=== PATIENT | male | born 1940 | race Caucasian/White ===

== ENCOUNTER 2017-07-11 14:40 | Inpatient (IN) | payer MEDICARE, MEDICAID ==
[~2017-07-11] VITALS: Ht 170.2 cm; Wt 65.8 kg
[2017-07-11] MEDS ORDERED: SODIUM CHLORIDE 0.9% 1,000 ML IV ONE ×2 (15:04→15:09)
[2017-07-11 16:01] LABS: BASOPHILS % 0.2 % (0.0-2.0); EOSINOPHILS % 0.7 % (0.0-5.0); HEMATOCRIT. 33.1 % (42.0-52.0); HEMOGLOBIN. 11.4 g/dL (14.0-18.0); LYMPHOCYTES % 10.6 % (20.0-50.0); MEAN CORPUSCULAR VOLUME 86.8 fL (80.0-94.0); MEAN PLATELET VOLUME 6.4 fl (7.4-10.4); MONOCYTES % 10.7 % (2.0-8.0); NEUTROPHILS % 77.8 % (40.0-76.0); PLATELET 551 x1000/uL (130-400); RED BLOOD CELL COUNT 3.82 mill/uL (4.7-6.1); RED CELL DISTRIBUTION WIDTH 13.6 % (11.6-14.6)
[2017-07-11 16:03] LABS: INR 1.1; PROTHROMBIN TIME 11.3 sec (9.4-11.6)
[2017-07-11 16:11] LABS: CARBON DIOXIDE 23 mEq/L (21-32); CHLORIDE 91 mEq/L (98-107); TROPONIN I < 0.02 ng/mL (0.00-0.04)
[2017-07-11] MEDS ORDERED: SODIUM CHLORIDE 0.9% 1000ML BAG (SEPSIS BOLUS) IV ONE (16:30)
[2017-07-11] MEDS ORDERED: PIPERACILLIN/TAZ 3.375G PREMIX 50 ML IV ONE (16:30)
[2017-07-11 17:06] LABS: CLARITY URINE CLEAR (CLEAR); COLOR URINE YELLOW (YELLOW); KETONES URINE NEGATIVE (NEGATIVE); LEUKOCYTE ESTERASE URINE NEGATIVE (NEGATIVE); NITRITE URINE NEGATIVE (NEGATIVE); OCCULT BLOOD URINE NEGATIVE (NEGATIVE); PH URINE 7.5 (4.5-8.0); PROTEIN URINE NEGATIVE (NEGATIVE); SPECIFIC GRAVITY URINE 1.013 (1.005-1.030); UROBILINOGEN URINE 0.2 E.U./dL (0.2-1.0)
[2017-07-11] MEDS ORDERED: PHENYTOIN SODIUM 500 MG in SODIUM CHLORIDE 0.9% 100 ML IV STA (17:09)
[2017-07-11] MEDS ORDERED: ACETAMINOPHEN 650MG SUPP PR PRN (19:15)
[2017-07-11] MEDS ORDERED: LORAZEPAM 2MG/ML CPJ IV PRN ×2 (19:15)
[2017-07-11] MEDS ORDERED: ONDANSETRON HCL 4MG/2ML VIAL IV PRN (19:15)
[2017-07-11] MEDS ORDERED: DEXT 5%/0.45% NACL 1000ML 1,000 ML IV SCH (19:30)
[2017-07-11 20:45] VITALS: BP 122/54
[2017-07-11 21:02] VITALS: BP 126/56
[2017-07-11 22:00] VITALS: BP 151/80
[2017-07-11] MEDS ORDERED: VANCOMYCIN 1250MG in DEXTROSE 5% WATER 250ML IV SCH (22:30)
[2017-07-11 23:00] VITALS: BP 106/67
[2017-07-11] MEDS: SODIUM CHLORIDE 0.9% 1,000 ML IV SCH (23:22)
[2017-07-12] VITALS (16 sets, daily range): BP systolic 94–147; BP diastolic 53–80
[2017-07-12] MEDS: PIPERACILLIN/TAZ 3.375G PREMIX 50 ML IV SCH ×3 (01:07→13:45)
[2017-07-12 06:56] LABS: BASOPHILS % 0.3 % (0.0-2.0); EOSINOPHILS % 1.3 % (0.0-5.0); HEMATOCRIT. 32.5 % (42.0-52.0); HEMOGLOBIN. 11.3 g/dL (14.0-18.0); LYMPHOCYTES % 19.9 % (20.0-50.0); MEAN CORPUSCULAR VOLUME 86.4 fL (80.0-94.0); MEAN PLATELET VOLUME 6.6 fl (7.4-10.4); MONOCYTES % 10.5 % (2.0-8.0); PLATELET 550 x1000/uL (130-400); RED BLOOD CELL COUNT 3.76 mill/uL (4.7-6.1); RED CELL DISTRIBUTION WIDTH 14.1 % (11.6-14.6)
[2017-07-12 07:37] LABS: CARBON DIOXIDE 26 mEq/L (21-32); CHLORIDE 92 mEq/L (98-107)
[2017-07-12] MEDS: SODIUM CHLORIDE 0.9% 1,000 ML IV SCH ×2 (08:22→16:45)
[2017-07-12] MEDS ORDERED: VANCOMYCIN 1 G PREMIX 200 ML IV SCH (10:30)
[2017-07-12] MEDS ORDERED: MULT-1116 PO (13:39)
[2017-07-12] MEDS ORDERED: ACET-2178 PO (13:39)
[2017-07-12] MEDS ORDERED: BUSP30TA2 PO (13:39)
[2017-07-12] MEDS ORDERED: ASPI-986 PO (13:39)
[2017-07-12] MEDS ORDERED: ATOR20TA65 PO (13:39)
[2017-07-12] MEDS ORDERED: DEME150T8 PO (13:39)
[2017-07-12] MEDS ORDERED: MELA3TAB PO (13:39)
[2017-07-12] MEDS ORDERED: FOLI-43 PO (13:39)
[2017-07-12] MEDS ORDERED: LEVE100S PO (13:39)
[2017-07-12] MEDS ORDERED: PHEN100C4 PO (13:39)
[2017-07-12] MEDS ORDERED: QUET50TA PO (13:39)
[2017-07-12] MEDS ORDERED: MAGN311T3 PO (13:39)
[2017-07-12] MEDS ORDERED: LACT10SO6 PO (13:39)
[2017-07-12] MEDS ORDERED: PHEN125O2 PO (13:39)
[2017-07-12] MEDS ORDERED: ACETYLCYSTEINE 200MG/ML 20% VIAL 4ML INH SCH ×2 (14:45→15:30)
[2017-07-12] MEDS ORDERED: ACETYLCYSTEINE 100MG/ML 10% VIAL 4ML INH SCH (14:45)
[2017-07-12] MEDS: ASPIRIN 325MG TABLET PO SCH (15:18)
[2017-07-12] MEDS: PHENYTOIN SODIUM 100MG/2ML VIAL IV SCH ×2 (15:18→22:35)
[2017-07-12] MEDS: LEVETIRACETAM 250 MG in SODIUM CHLORIDE 0.9% 100 ML IV SCH (15:18)
[2017-07-12] MEDS: BUSPIRONE HCL 5MG TABLET PO SCH (16:42)
[2017-07-12] MEDS: DEMECLOCYCLINE HCL PO SCH (16:43)
[2017-07-12] MEDS: QUETIAPINE FUMARATE 50MG TABLET PO SCH (16:45)
[2017-07-12] MEDS ORDERED: LEVETIRACETAM 500MG/5ML CUP PO SCH (17:00)
[2017-07-12] MEDS ORDERED: MEDICATION NOT ON FORMULARY EA (Melatonin 3 MG) PO SCH (21:00)
[2017-07-12] MEDS: VANCOMYCIN 1 G PREMIX 200 ML IV SCH (21:23)
[2017-07-12] MEDS: ATORVASTATIN CALCIUM 20MG TABLET PO SCH (21:33)
[2017-07-12] MEDS: ACETYLCYSTEINE 200MG/ML 20% VIAL 4ML INH SCH (22:08)
[2017-07-12] MEDS: IPRATROPIUM/ALBUTEROL 0.5-3(2.5)MG/3ML NEB HHN SCH (22:08)
[2017-07-13] VITALS (14 sets, daily range): BP systolic 122–169; BP diastolic 59–96
[2017-07-13] MEDS: PIPERACILLIN/TAZ 3.375G PREMIX 50 ML IV SCH ×4 (00:21→17:14)
[2017-07-13] MEDS: LEVETIRACETAM 250 MG in SODIUM CHLORIDE 0.9% 100 ML IV SCH ×2 (03:08→15:01)
[2017-07-13] MEDS: SODIUM CHLORIDE 0.9% 1,000 ML IV SCH ×2 (03:10→13:03)
[2017-07-13] MEDS: IPRATROPIUM/ALBUTEROL 0.5-3(2.5)MG/3ML NEB HHN SCH ×3 (03:33→22:40)
[2017-07-13] MEDS: ACETYLCYSTEINE 200MG/ML 20% VIAL 4ML INH SCH ×3 (03:33→22:42)
[2017-07-13] MEDS: PHENYTOIN SODIUM 100MG/2ML VIAL IV SCH ×3 (06:52→22:09)
[2017-07-13] MEDS: VANCOMYCIN 1 G PREMIX 200 ML IV SCH (08:57)
[2017-07-13] MEDS: ASPIRIN 325MG TABLET PO SCH (08:57)
[2017-07-13] MEDS: DEMECLOCYCLINE HCL PO SCH ×2 (08:57→17:14)
[2017-07-13] MEDS: PANTOPRAZOLE SODIUM 40 MG/VIAL IV SCH (08:57)
[2017-07-13] MEDS: BUSPIRONE HCL 5MG TABLET PO SCH ×2 (08:57→17:14)
[2017-07-13] MEDS: MULTIVITAMINS,THER W-MINERALS TABLET PO SCH (08:57)
[2017-07-13] MEDS: FOLIC ACID 1MG TABLET PO SCH (08:57)
[2017-07-13] MEDS: QUETIAPINE FUMARATE 50MG TABLET PO SCH ×3 (08:57→17:13)
[2017-07-13 11:59] LABS: BASOPHILS % 0.4 % (0.0-2.0); EOSINOPHILS % 4.4 % (0.0-5.0); HEMATOCRIT. 31.1 % (42.0-52.0); HEMOGLOBIN. 10.6 g/dL (14.0-18.0); MEAN CORPUSCULAR HEMOGLOBIN 29.2 pg (28.0-32.0); MEAN CORPUSCULAR VOLUME 85.4 fL (80.0-94.0); MEAN PLATELET VOLUME 6.4 fl (7.4-10.4); MONOCYTES % 9.9 % (2.0-8.0); NEUTROPHILS % 64.3 % (40.0-76.0); PLATELET 519 x1000/uL (130-400); RED BLOOD CELL COUNT 3.64 mill/uL (4.7-6.1); RED CELL DISTRIBUTION WIDTH 14.1 % (11.6-14.6)
[2017-07-13 12:21] LABS: CARBON DIOXIDE 27 mEq/L (21-32); CHLORIDE 95 mEq/L (98-107)
[2017-07-13] MEDS ORDERED: VANCOMYCIN 1 G PREMIX 200 ML IV SCH (21:00)
[2017-07-13] MEDS: ATORVASTATIN CALCIUM 20MG TABLET PO SCH (22:09)
[2017-07-13] MEDS: VANCOMYCIN 1250MG in DEXTROSE 5% WATER 250ML IV SCH (22:14)
[2017-07-14] VITALS (12 sets, daily range): BP systolic 116–148; BP diastolic 61–78
[2017-07-14] MEDS: PIPERACILLIN/TAZ 3.375G PREMIX 50 ML IV SCH ×4 (00:30→18:00)
[2017-07-14] MEDS: IPRATROPIUM/ALBUTEROL 0.5-3(2.5)MG/3ML NEB HHN SCH ×4 (02:31→20:29)
[2017-07-14] MEDS: ACETYLCYSTEINE 200MG/ML 20% VIAL 4ML INH SCH ×3 (02:32→20:56)
[2017-07-14] MEDS: LEVETIRACETAM 250 MG in SODIUM CHLORIDE 0.9% 100 ML IV SCH ×2 (03:42→15:44)
[2017-07-14] MEDS: PHENYTOIN SODIUM 100MG/2ML VIAL IV SCH ×3 (06:13→21:53)
[2017-07-14 07:09] LABS: BASOPHILS % 0.4 % (0.0-2.0); EOSINOPHILS % 6.3 % (0.0-5.0); HEMATOCRIT. 30.6 % (42.0-52.0); HEMOGLOBIN. 10.4 g/dL (14.0-18.0); LYMPHOCYTES % 19.7 % (20.0-50.0); MEAN CORPUSCULAR HEMOGLOBIN 28.9 pg (28.0-32.0); MEAN CORPUSCULAR VOLUME 85.1 fL (80.0-94.0); MEAN PLATELET VOLUME 6.5 fl (7.4-10.4); MONOCYTES % 9.8 % (2.0-8.0); NEUTROPHILS % 63.8 % (40.0-76.0); PLATELET 535 x1000/uL (130-400); RED CELL DISTRIBUTION WIDTH 14.2 % (11.6-14.6)
[2017-07-14 07:37] LABS: CHLORIDE 96 mEq/L (98-107)
[2017-07-14 07:42] LABS: CARBON DIOXIDE 28 mEq/L (21-32)
[2017-07-14] MEDS: VANCOMYCIN 1250MG in DEXTROSE 5% WATER 250ML IV SCH (10:13)
[2017-07-14] MEDS: BUSPIRONE HCL 5MG TABLET PO SCH ×2 (10:14→16:59)
[2017-07-14] MEDS: FOLIC ACID 1MG TABLET PO SCH (10:14)
[2017-07-14] MEDS: MULTIVITAMINS,THER W-MINERALS TABLET PO SCH (10:14)
[2017-07-14] MEDS: QUETIAPINE FUMARATE 50MG TABLET PO SCH ×3 (10:15→16:59)
[2017-07-14] MEDS: ASPIRIN 325MG TABLET PO SCH (10:15)
[2017-07-14] MEDS: PANTOPRAZOLE SODIUM 40 MG/VIAL IV SCH (10:15)
[2017-07-14] MEDS ORDERED: MAGNESIUM 2 G PREMIX 50 ML IV NR (15:00)
[2017-07-14] MEDS: DEMECLOCYCLINE HCL 300MG TABLET PO SCH (18:25)
[2017-07-14] MEDS: ATORVASTATIN CALCIUM 20MG TABLET PO SCH (21:53)
[2017-07-14] MEDS ORDERED: VANCOMYCIN 1,250 MG in SODIUM CHLORIDE 0.9% 250 ML IV SCH (22:44)
[2017-07-15] VITALS: BP 138/66
[2017-07-15] MEDS: PIPERACILLIN/TAZ 3.375G PREMIX 50 ML IV SCH ×2 (00:36→06:05)
[2017-07-15 02:00] VITALS: BP 134/69
[2017-07-15] MEDS: IPRATROPIUM/ALBUTEROL 0.5-3(2.5)MG/3ML NEB HHN SCH ×3 (02:03→15:10)
[2017-07-15] MEDS: ACETYLCYSTEINE 200MG/ML 20% VIAL 4ML INH SCH ×3 (02:03→15:11)
[2017-07-15 04:00] VITALS: BP 126/60
[2017-07-15 06:00] VITALS: BP 126/67
[2017-07-15] MEDS ORDERED: PHENYTOIN SODIUM EXTENDED 100MG CAPSULE PO SCH (06:00)
[2017-07-15] MEDS ORDERED: LEVETIRACETAM 250MG TABLET PO SCH (09:00)
[2017-07-15] MEDS: ASPIRIN 325MG TABLET PO SCH (09:38)
[2017-07-15] MEDS: PANTOPRAZOLE SODIUM 40 MG/VIAL IV SCH (09:38)
[2017-07-15] MEDS: BUSPIRONE HCL 5MG TABLET PO SCH (09:38)
[2017-07-15] MEDS: DEMECLOCYCLINE HCL 300MG TABLET PO SCH (09:39)
[2017-07-15] MEDS: FOLIC ACID 1MG TABLET PO SCH (09:40)
[2017-07-15] MEDS: QUETIAPINE FUMARATE 50MG TABLET PO SCH (09:41)
[2017-07-15] MEDS: MULTIVITAMINS,THER W-MINERALS TABLET PO SCH (09:41)
[2017-07-15 17:03] VITALS: BP 154/86
[2017-07-15] MEDS ORDERED: VANCOMYCIN 1,250 MG in SODIUM CHLORIDE 0.9% 250 ML IV SCH ×3 (23:00)
== END 2017-07-15 18:30 | DRG 871 ==
LOC: ER 14:52 → 5EST 17:18 → EDBEDREQ 17:21 → ENRESERV 18:19 → SUPCPDRO 19:04
PROVIDERS: ADMIT Internal Medicine Nephrology; ATTEND Internal Medicine Nephrology
DX: A41.9 Sepsis, unspecified organism (principal); G93.40 Encephalopathy, unspecified; J69.0 Pneumonitis due to inhalation of food and vomit; J96.00 Acute respiratory failure, unspecified whether with hypoxia or hypercapnia; E43 Unspecified severe protein-calorie malnutrition; J90 Pleural effusion, not elsewhere classified; E87.1 Hypo-osmolality and hyponatremia; D69.6 Thrombocytopenia, unspecified; E83.42 Hypomagnesemia; Y95 Nosocomial condition; F03.90 Unspecified dementia, unspecified severity, without behavioral disturbance, psychotic disturbance, mood disturbance, and anxiety; I11.9 Hypertensive heart disease without heart failure; G40.409 Other generalized epilepsy and epileptic syndromes, not intractable, without status epilepticus; D64.9 Anemia, unspecified; E78.5 Hyperlipidemia, unspecified; F20.9 Schizophrenia, unspecified; F32.9 Major depressive disorder, single episode, unspecified; F41.9 Anxiety disorder, unspecified; Z68.22 Body mass index [BMI] 22.0-22.9, adult; Z79.899 Other long term (current) drug therapy
CPT/HCPCS: 36415; 70450; 71010; 80048; 80053; 80185; 80202; 81003; 83605; 83735; 84484; 85025; 85610; 87040; 87086; 92610; 93005; 94640; 96361; 96365; 96367; 99291; C1893; C9113; J1165; J1953; J2543; J3370; J3475; J7030; J7040; J7050; J7060; J7608; J7620

== ENCOUNTER 2018-02-04 11:59 | Inpatient (IN) | payer MEDICARE, MEDICAID ==
[2018-02-04] VITALS (36 sets, daily range): BP systolic 72–165; BP diastolic 49–82
[~2018-02-04] VITALS: Ht 172.7 cm; Wt 71.2 kg
[~2018-02-04 11:59] MED LIST: ACET-2178 PO; ASPI-986 PO; ATOR20TA65 PO; BUSP30TA2 PO; DEME150T8 PO; FOLI-43 PO; LACT10SO6 PO; LEVE100S PO; MAGN311T3 PO; MELA3TAB PO; MULT-1116 PO; PHEN100C4 PO; PHEN100O5 PO; QUET50TA PO
[2018-02-04] MEDS ORDERED: SODIUM CHLORIDE 0.9% 1,000 ML IV ONE ×2 (12:20→12:36)
[2018-02-04] MEDS ORDERED: LEVETIRACETAM 500MG PREMIX 100 ML IV ONE (12:30)
[2018-02-04 12:43] LABS: BG BASE EXCESS -9.9 mmol/L (-2.0-2.0); BG CARBOXYHEMOGLOBIN 0.2 % (0.5-1.5); BG DEOXYHEMOGLOBIN 15.5 % (0.0-5.0); BG HCO3 ACT 16.4 mmol/L (22.0-26.0); BG METHEMOGLOBIN 0.3 % (0.0-1.5); BG OXYGEN SATURATION 84.4 % (92.0-98.5); BG PCO2 37.4 mmHg (35.0-45.0); BG PH 7.259 (7.350-7.450); BG PO2 57.3 mmHg (75.0-100.0); BG SAMPLE SITE LEFT RADIAL; BG TOTAL HEMOGLOBIN 10.6 g/dL (12.0-18.0); BG VENT MODE NASAL CANNULA
[2018-02-04] MEDS ORDERED: NOREPINEPHRINE 4 MG in DEXT 5% WATER 246 ML IV ONE (12:45)
[2018-02-04] MEDS ORDERED: SODIUM CHLORIDE 0.9% 1000ML BAG (SEPSIS BOLUS) IV ONE (13:00)
[2018-02-04 13:03] LABS: BASOPHILS % 0.1 % (0.0-2.0); EOSINOPHILS % 1.2 % (0.0-5.0); HEMATOCRIT. 29.7 % (42.0-52.0); HEMOGLOBIN. 9.4 g/dL (14.0-18.0); LYMPHOCYTES % 17.7 % (20.0-50.0); MEAN CORPUSCULAR HEMOGLOBIN 24.7 pg (28.0-32.0); MEAN PLATELET VOLUME 6.6 fl (7.4-10.4); PLATELET 448 x1000/uL (130-400); RED CELL DISTRIBUTION WIDTH 17.3 % (11.6-14.6)
[2018-02-04 13:06] LABS: CHLORIDE 101 mEq/L (98-107)
[2018-02-04] MEDS ORDERED: MIDAZOLAM HCL 2 MG/2 ML VIAL ONE (13:09)
[2018-02-04 13:12] LABS: INR 1.1; PARTIAL THROMBOPLASTIN TIME 24.7 sec (23.4-31.0); PROTHROMBIN TIME 11.7 sec (9.4-11.6)
[2018-02-04 13:15] LABS: CLARITY URINE CLEAR (CLEAR); COLOR URINE YELLOW (YELLOW); KETONES URINE NEGATIVE (NEGATIVE); LEUKOCYTE ESTERASE URINE NEGATIVE (NEGATIVE); NITRITE URINE NEGATIVE (NEGATIVE); OCCULT BLOOD URINE NEGATIVE (NEGATIVE); PH URINE 5.5 (4.5-8.0); PROTEIN URINE NEGATIVE (NEGATIVE); SPECIFIC GRAVITY URINE 1.021 (1.005-1.030); UROBILINOGEN URINE 0.2 E.U./dL (0.2-1.0)
[2018-02-04] MEDS ORDERED: SUCCINYLCHOLINE CHLORIDE 200MG/10ML VIAL IV ONE ×2 (13:15→14:55)
[2018-02-04] MEDS ORDERED: MIDAZOLAM HCL 2 MG/2 ML VIAL IV ONE (13:15)
[2018-02-04] MEDS ORDERED: MIDAZOLAM HCL 50 MG in DEXTROSE 5% WATER 40 ML IV ONE ×4 (13:15)
[2018-02-04] MEDS ORDERED: VECURONIUM BROMIDE 10 MG/VIAL IV ONE ×2 (13:15→14:55)
[2018-02-04] MEDS ORDERED: ETOMIDATE 2MG/ML 10ML VIAL IV ONE ×2 (13:15→14:55)
[2018-02-04] MEDS ORDERED: PHENYTOIN SODIUM 1,000 MG in SODIUM CHLORIDE 0.9% 100 ML IV ONE (13:30)
[2018-02-04 13:42] LABS: BG BASE EXCESS -5.2 mmol/L (-2.0-2.0); BG CARBOXYHEMOGLOBIN 0.3 % (0.5-1.5); BG DEOXYHEMOGLOBIN 0.3 % (0.0-5.0); BG FRACTION INSPIRED OXYGEN 100; BG HCO3 ACT 19.2 mmol/L (22.0-26.0); BG METHEMOGLOBIN 0.3 % (0.0-1.5); BG OXYGEN SATURATION 99.7 % (92.0-98.5); BG OXYHEMOGLOBIN 99.1 % (94.0-97.0); BG PCO2 33.5 mmHg (35.0-45.0); BG PH 7.377 (7.350-7.450); BG PO2 425.1 mmHg (75.0-100.0); BG SAMPLE SITE RIGHT BRACHIAL; BG TIDAL VOLUME(mL) 500 mL; BG TOTAL HEMOGLOBIN 10.8 g/dL (12.0-18.0); BG VENT MODE VENT - A/C; BG VENT RATE 14 set
[2018-02-04] MEDS ORDERED: PROPOFOL 10MG/ML 100ML 100 ML IV SCH (14:00)
[2018-02-04] MEDS ORDERED: MORPHINE SULFATE 10 MG/ML CPJ IV ONE (14:00)
[2018-02-04] MEDS ORDERED: NORMAL SALINE 0.9% 10 ML SYR ONE (14:55)
[2018-02-04] MEDS ORDERED: FENTANYL CITRATE/PF 500 MCG in SODIUM CHLORIDE 0.9% 40 ML IV PRN (15:15)
[2018-02-04] MEDS ORDERED: PROPOFOL 10MG/ML 100ML 100 ML IV PRN (15:45)
[2018-02-04] MEDS ORDERED: ACETAMINOPHEN 325MG TABLET PO PRN (16:00)
[2018-02-04] MEDS: PANTOPRAZOLE SODIUM 40 MG/VIAL IV SCH (17:55)
[2018-02-04] MEDS: PIPERACILLIN/TAZ 3.375G PREMIX 50 ML IV SCH (17:55)
[2018-02-04] MEDS: SODIUM CHLORIDE 0.9% 1,000 ML IV SCH (17:56)
[2018-02-04] MEDS: NOREPINEPHRINE 8 MG in DEXT 5% WATER 242 ML IV PRN (17:57)
[2018-02-04] MEDS: LEVETIRACETAM 500 MG in SODIUM CHLORIDE 0.9% 100 ML IV SCH (18:13)
[2018-02-04] MEDS: MIDAZOLAM HCL 50 MG in DEXTROSE 5% WATER 40 ML IV PRN ×2 (18:25→22:13)
[2018-02-04] MEDS: FENTANYL CITRATE/PF 500 MCG in SODIUM CHLORIDE 0.9% 40 ML IV PRN (18:27)
[2018-02-04] MEDS ORDERED: VANCOMYCIN 1250MG in DEXTROSE 5% WATER 250ML IV SCH (18:30)
[2018-02-04] MEDS ORDERED: MAGNESIUM 2 G PREMIX 50 ML IV ONE (19:00)
[2018-02-04] MEDS ORDERED: KCL 20MEQ/100ML PREMIX 100 ML IV NR (20:00)
[2018-02-04] MEDS: IPRATROPIUM/ALBUTEROL 0.5-3(2.5)MG/3ML NEB HHN SCH (20:21)
[2018-02-04] MEDS: MAGNESIUM 1 G PREMIX 100 ML IV SCH ×4 (21:49→23:41)
[2018-02-04] MEDS ORDERED: IPRATROPIUM/ALBUTEROL 0.5-3(2.5)MG/3ML NEB HHN PRN (22:00)
[2018-02-04] MEDS: PHENYTOIN SODIUM 100MG/2ML VIAL IV SCH (22:44)
[2018-02-05] VITALS (87 sets, daily range): BP systolic 77–151; BP diastolic 42–80
[2018-02-05] MEDS: MAGNESIUM 1 G PREMIX 100 ML IV SCH
[2018-02-05] MEDS: FENTANYL CITRATE/PF 500 MCG in SODIUM CHLORIDE 0.9% 40 ML IV PRN ×2 (00:44→18:26)
[2018-02-05] MEDS: PIPERACILLIN/TAZ 3.375G PREMIX 50 ML IV SCH ×3 (02:11→19:11)
[2018-02-05] MEDS: SODIUM CHLORIDE 0.9% 1,000 ML IV SCH ×3 (02:12→21:52)
[2018-02-05] MEDS: MIDAZOLAM HCL 50 MG in DEXTROSE 5% WATER 40 ML IV PRN ×5 (03:02→23:04)
[2018-02-05] MEDS: LEVETIRACETAM 500 MG in SODIUM CHLORIDE 0.9% 100 ML IV SCH ×2 (05:08→19:11)
[2018-02-05] MEDS: PHENYTOIN SODIUM 100MG/2ML VIAL IV SCH ×3 (05:08→21:52)
[2018-02-05 06:06] LABS: BASOPHILS % 0.2 % (0.0-2.0); HEMATOCRIT. 30.5 % (42.0-52.0); HEMOGLOBIN. 9.7 g/dL (14.0-18.0); LYMPHOCYTES % 11.8 % (20.0-50.0); MEAN CORPUSCULAR HEMOGLOBIN 24.6 pg (28.0-32.0); MEAN CORPUSCULAR VOLUME 77.5 fL (80.0-94.0); MEAN PLATELET VOLUME 7.3 fl (7.4-10.4); MONOCYTES % 12.2 % (2.0-8.0); NEUTROPHILS % 74.8 % (40.0-76.0); PLATELET 442 x1000/uL (130-400); RED BLOOD CELL COUNT 3.94 mill/uL (4.7-6.1); RED CELL DISTRIBUTION WIDTH 17.6 % (11.6-14.6)
[2018-02-05 06:31] LABS: PHOSPHORUS 3.6 mg/dL (2.5-4.9)
[2018-02-05 07:58] LABS: BG BASE EXCESS -5.6 mmol/L (-2.0-2.0); BG CARBOXYHEMOGLOBIN 0.1 % (0.5-1.5); BG DEOXYHEMOGLOBIN 1.2 % (0.0-5.0); BG FRACTION INSPIRED OXYGEN 50; BG HCO3 ACT 19.7 mmol/L (22.0-26.0); BG METHEMOGLOBIN 0.3 % (0.0-1.5); BG OXYGEN SATURATION 98.8 % (92.0-98.5); BG OXYHEMOGLOBIN 98.4 % (94.0-97.0); BG PCO2 37.7 mmHg (35.0-45.0); BG PH 7.336 (7.350-7.450); BG PO2 138.5 mmHg (75.0-100.0); BG SAMPLE SITE RIGHT RADIAL; BG TIDAL VOLUME(mL) 500 mL; BG TOTAL HEMOGLOBIN 10.8 g/dL (12.0-18.0); BG VENT MODE VENT - A/C; BG VENT RATE 14 set
[2018-02-05] MEDS: PANTOPRAZOLE SODIUM 40 MG/VIAL IV SCH (08:23)
[2018-02-05] MEDS: IPRATROPIUM/ALBUTEROL 0.5-3(2.5)MG/3ML NEB HHN SCH ×4 (08:35→20:44)
[2018-02-05] MEDS ORDERED: VANCOMYCIN 1250MG in DEXTROSE 5% WATER 250ML IV SCH (13:00)
[2018-02-05] MEDS ORDERED: VANCOMYCIN 500 MG PREMIX 100 ML IV NR (14:00)
[2018-02-05] MEDS: NOREPINEPHRINE 8 MG in DEXT 5% WATER 242 ML IV PRN (18:49)
[2018-02-06] VITALS (71 sets, daily range): BP systolic 84–163; BP diastolic 44–86
[2018-02-06] MEDS: PIPERACILLIN/TAZ 3.375G PREMIX 50 ML IV SCH ×3 (01:40→16:30)
[2018-02-06] MEDS: LEVETIRACETAM 500 MG in SODIUM CHLORIDE 0.9% 100 ML IV SCH ×2 (05:42→18:16)
[2018-02-06] MEDS: MIDAZOLAM HCL 50 MG in DEXTROSE 5% WATER 40 ML IV PRN ×3 (05:42→19:29)
[2018-02-06] MEDS: PHENYTOIN SODIUM 100MG/2ML VIAL IV SCH ×3 (05:42→21:27)
[2018-02-06 05:44] LABS: BASOPHILS % 0.2 % (0.0-2.0); EOSINOPHILS % 4.2 % (0.0-5.0); HEMATOCRIT. 31.8 % (42.0-52.0); HEMOGLOBIN. 10.2 g/dL (14.0-18.0); LYMPHOCYTES % 14.6 % (20.0-50.0); MEAN CORPUSCULAR HEMOGLOBIN 24.9 pg (28.0-32.0); MEAN CORPUSCULAR VOLUME 77.5 fL (80.0-94.0); MEAN PLATELET VOLUME 7.3 fl (7.4-10.4); MONOCYTES % 12.9 % (2.0-8.0); NEUTROPHILS % 68.1 % (40.0-76.0); PLATELET 404 x1000/uL (130-400)
[2018-02-06 07:17] LABS: BG BASE EXCESS -4.8 mmol/L (-2.0-2.0); BG CARBOXYHEMOGLOBIN 0.1 % (0.5-1.5); BG DEOXYHEMOGLOBIN 2.5 % (0.0-5.0); BG HCO3 ACT 19.5 mmol/L (22.0-26.0); BG METHEMOGLOBIN 0.2 % (0.0-1.5); BG OXYGEN SATURATION 97.5 % (92.0-98.5); BG OXYHEMOGLOBIN 97.2 % (94.0-97.0); BG PCO2 33.1 mmHg (35.0-45.0); BG PH 7.389 (7.350-7.450); BG PO2 100.9 mmHg (75.0-100.0); BG SAMPLE SITE RIGHT RADIAL; BG TIDAL VOLUME(mL) 500 mL; BG TOTAL HEMOGLOBIN 9.5 g/dL (12.0-18.0); BG VENT MODE VENT - A/C; BG VENT RATE 16 set
[2018-02-06] MEDS: IPRATROPIUM/ALBUTEROL 0.5-3(2.5)MG/3ML NEB HHN SCH ×4 (08:16→20:17)
[2018-02-06] MEDS: PANTOPRAZOLE SODIUM 40 MG/VIAL IV SCH (08:42)
[2018-02-06] MEDS: CITRIC ACID/SODIUM CITRATE SOLN 15ML UDC PO SCH ×3 (09:13→16:29)
[2018-02-06] MEDS ORDERED: IPRATROPIUM/ALBUTEROL 0.5-3(2.5)MG/3ML NEB HHN PRN (10:00)
[2018-02-06 10:14] LABS: CREATINE KINASE 153 IU/L (39-308)
[2018-02-06] MEDS: FENTANYL CITRATE/PF 500 MCG in SODIUM CHLORIDE 0.9% 40 ML IV PRN ×2 (10:14→19:30)
[2018-02-06] MEDS ORDERED: VANCOMYCIN 1250MG in DEXTROSE 5% WATER 250ML IV SCH (11:00)
[2018-02-06] MEDS: SODIUM CHLORIDE 0.9% 1,000 ML IV SCH ×2 (16:21→21:23)
[2018-02-07] VITALS (54 sets, daily range): BP systolic 82–166; BP diastolic 39–137
[2018-02-07] MEDS: IPRATROPIUM/ALBUTEROL 0.5-3(2.5)MG/3ML NEB HHN SCH ×6 (00:05→20:10)
[2018-02-07] MEDS: MIDAZOLAM HCL 50 MG in DEXTROSE 5% WATER 40 ML IV PRN ×5 (00:45→20:19)
[2018-02-07] MEDS: FENTANYL CITRATE/PF 500 MCG in SODIUM CHLORIDE 0.9% 40 ML IV PRN ×4 (00:46→20:20)
[2018-02-07] MEDS: PIPERACILLIN/TAZ 3.375G PREMIX 50 ML IV SCH ×3 (00:47→17:37)
[2018-02-07] MEDS: SODIUM CHLORIDE 0.9% 1,000 ML IV SCH (03:33)
[2018-02-07 05:45] LABS: BASOPHILS % 0.1 % (0.0-2.0); EOSINOPHILS % 6.1 % (0.0-5.0); HEMATOCRIT. 25.2 % (42.0-52.0); HEMOGLOBIN. 8.4 g/dL (14.0-18.0); LYMPHOCYTES % 20.2 % (20.0-50.0); MEAN CORPUSCULAR HEMOGLOBIN 25.6 pg (28.0-32.0); MEAN CORPUSCULAR VOLUME 76.9 fL (80.0-94.0); MEAN PLATELET VOLUME 7.2 fl (7.4-10.4); MONOCYTES % 11.2 % (2.0-8.0); NEUTROPHILS % 62.4 % (40.0-76.0); PLATELET 348 x1000/uL (130-400); RED BLOOD CELL COUNT 3.27 mill/uL (4.7-6.1); RED CELL DISTRIBUTION WIDTH 17.4 % (11.6-14.6)
[2018-02-07 05:52] LABS: CHLORIDE 111 mEq/L (98-107)
[2018-02-07 05:56] LABS: PHOSPHORUS 3.6 mg/dL (2.5-4.9)
[2018-02-07] MEDS: PHENYTOIN SODIUM 100MG/2ML VIAL IV SCH ×3 (06:33→20:24)
[2018-02-07] MEDS ORDERED: POTASSIUM CHLORIDE 20MEQ/PACKET PO SCH (08:15)
[2018-02-07] MEDS: PANTOPRAZOLE SODIUM 40 MG/VIAL IV SCH (08:27)
[2018-02-07] MEDS: LEVETIRACETAM 500 MG in SODIUM CHLORIDE 0.9% 100 ML IV SCH (08:28)
[2018-02-07] MEDS: CITRIC ACID/SODIUM CITRATE SOLN 15ML UDC PO SCH ×3 (08:28→17:37)
[2018-02-07 08:58] LABS: BG BASE EXCESS -4.9 mmol/L (-2.0-2.0); BG CARBOXYHEMOGLOBIN 0.3 % (0.5-1.5); BG HCO3 ACT 19.7 mmol/L (22.0-26.0); BG METHEMOGLOBIN 0.1 % (0.0-1.5); BG OXYHEMOGLOBIN 96.6 % (94.0-97.0); BG PCO2 34.7 mmHg (35.0-45.0); BG PH 7.373 (7.350-7.450); BG PO2 98.3 mmHg (75.0-100.0); BG SAMPLE SITE RIGHT RADIAL; BG TIDAL VOLUME(mL) 500 mL; BG TOTAL HEMOGLOBIN 9.4 g/dL (12.0-18.0); BG VENT MODE VENT - A/C; BG VENT RATE 16 set
[2018-02-07 10:04] LABS: HEMATOCRIT 29.5 % (42.0-52.0); HEMOGLOBIN 9.4 g/dL (14.0-18.0)
[2018-02-07] MEDS: LORAZEPAM 2MG/ML CPJ IV PRN ×2 (10:05→13:33)
[2018-02-07] MEDS: METOCLOPRAMIDE HCL 10MG/2ML VIAL IV SCH ×2 (11:57→17:37)
[2018-02-07] MEDS: VANCOMYCIN 1250MG in DEXTROSE 5% WATER 250ML IV SCH (12:00)
[2018-02-07] MEDS: ACETYLCYSTEINE 100MG/ML 10% VIAL 4ML INH SCH (12:30)
[2018-02-07] MEDS: LEVETIRACETAM 1,000 MG in SODIUM CHLORIDE 0.9% 100 ML IV SCH (20:23)
[2018-02-08] VITALS (53 sets, daily range): BP systolic 93–214; BP diastolic 43–125
[2018-02-08] MEDS: IPRATROPIUM/ALBUTEROL 0.5-3(2.5)MG/3ML NEB HHN SCH ×6 (00:06→20:37)
[2018-02-08] MEDS: PIPERACILLIN/TAZ 3.375G PREMIX 50 ML IV SCH ×3 (00:36→18:14)
[2018-02-08] MEDS: METOCLOPRAMIDE HCL 10MG/2ML VIAL IV SCH ×5 (00:36→23:57)
[2018-02-08] MEDS: FENTANYL CITRATE/PF 500 MCG in SODIUM CHLORIDE 0.9% 40 ML IV PRN ×3 (00:41→23:55)
[2018-02-08] MEDS: MIDAZOLAM HCL 50 MG in DEXTROSE 5% WATER 40 ML IV PRN ×3 (01:30→17:44)
[2018-02-08 05:21] LABS: BASOPHILS % 0.4 % (0.0-2.0); EOSINOPHILS % 6.4 % (0.0-5.0); HEMATOCRIT. 26.9 % (42.0-52.0); HEMOGLOBIN. 8.8 g/dL (14.0-18.0); LYMPHOCYTES % 16.5 % (20.0-50.0); MEAN CORPUSCULAR HEMOGLOBIN 25.6 pg (28.0-32.0); MEAN CORPUSCULAR VOLUME 78.2 fL (80.0-94.0); MEAN PLATELET VOLUME 7.6 fl (7.4-10.4); MONOCYTES % 9.4 % (2.0-8.0); NEUTROPHILS % 67.3 % (40.0-76.0); PLATELET 168 x1000/uL (130-400); RED BLOOD CELL COUNT 3.44 mill/uL (4.7-6.1); RED CELL DISTRIBUTION WIDTH 17.9 % (11.6-14.6)
[2018-02-08 05:42] LABS: CHLORIDE 108 mEq/L (98-107)
[2018-02-08 05:48] LABS: PHOSPHORUS 4.1 mg/dL (2.5-4.9)
[2018-02-08] MEDS: PHENYTOIN SODIUM 100MG/2ML VIAL IV SCH ×3 (05:54→21:00)
[2018-02-08] MEDS: VANCOMYCIN 1250MG in DEXTROSE 5% WATER 250ML IV SCH (06:00)
[2018-02-08 07:38] LABS: BG CARBOXYHEMOGLOBIN 0.1 % (0.5-1.5); BG DEOXYHEMOGLOBIN 1.7 % (0.0-5.0); BG FRACTION INSPIRED OXYGEN 40; BG HCO3 ACT 22.9 mmol/L (22.0-26.0); BG METHEMOGLOBIN 0.3 % (0.0-1.5); BG OXYGEN SATURATION 98.3 % (92.0-98.5); BG OXYHEMOGLOBIN 97.9 % (94.0-97.0); BG PCO2 35.3 mmHg (35.0-45.0); BG PO2 113.3 mmHg (75.0-100.0); BG SAMPLE SITE RIGHT RADIAL; BG TIDAL VOLUME(mL) 500 mL; BG TOTAL HEMOGLOBIN 10.3 g/dL (12.0-18.0); BG VENT MODE VENT - A/C; BG VENT RATE 16 set
[2018-02-08 08:24] LABS: TOTAL IRON BINDING CAPACITY 283 ug/dL (250-450)
[2018-02-08] MEDS: AMLODIPINE 5MG TABLET PO SCH (08:39)
[2018-02-08] MEDS: CITRIC ACID/SODIUM CITRATE SOLN 15ML UDC PO SCH ×3 (08:39→18:14)
[2018-02-08] MEDS: PANTOPRAZOLE SODIUM 40 MG/VIAL IV SCH (08:39)
[2018-02-08] MEDS: LEVETIRACETAM 1,000 MG in SODIUM CHLORIDE 0.9% 100 ML IV SCH ×2 (08:39→21:37)
[2018-02-08] MEDS: ACETYLCYSTEINE 100MG/ML 10% VIAL 4ML INH SCH ×3 (09:04→16:11)
[2018-02-08 10:12] LABS: BG BASE EXCESS 0.1 mmol/L (-2.0-2.0); BG CARBOXYHEMOGLOBIN 0.3 % (0.5-1.5); BG FRACTION INSPIRED OXYGEN 40; BG HCO3 ACT 24.4 mmol/L (22.0-26.0); BG OXYHEMOGLOBIN 97.7 % (94.0-97.0); BG PCO2 38.1 mmHg (35.0-45.0); BG PH 7.424 (7.350-7.450); BG PO2 115.4 mmHg (75.0-100.0); BG PRESSURE SUPPORT 14; BG SAMPLE SITE RIGHT RADIAL; BG TIDAL VOLUME(mL) 500 mL; BG VENT MODE VENT - SIMV; BG VENT RATE 10 set
[2018-02-08] MEDS: IRON SUCROSE COMPLEX 100 MG/5 ML ML IV SCH (12:26)
[2018-02-08 13:19] LABS: BG BASE EXCESS -1.7 mmol/L (-2.0-2.0); BG CARBOXYHEMOGLOBIN 0.1 % (0.5-1.5); BG DEOXYHEMOGLOBIN 3.4 % (0.0-5.0); BG FRACTION INSPIRED OXYGEN 40; BG METHEMOGLOBIN 0.1 % (0.0-1.5); BG OXYGEN SATURATION 96.6 % (92.0-98.5); BG OXYHEMOGLOBIN 96.4 % (94.0-97.0); BG PCO2 38.4 mmHg (35.0-45.0); BG PH 7.395 (7.350-7.450); BG PO2 94.5 mmHg (75.0-100.0); BG PRESSURE SUPPORT 12; BG SAMPLE SITE RIGHT RADIAL; BG TIDAL VOLUME(mL) 500 mL; BG TOTAL HEMOGLOBIN 9.5 g/dL (12.0-18.0); BG VENT MODE VENT - SIMV; BG VENT RATE 6 set
[2018-02-08] MEDS ORDERED: ETOMIDATE 2MG/ML 10ML VIAL IV ONE (13:39)
[2018-02-08] MEDS ORDERED: VECURONIUM BROMIDE 10 MG/VIAL IV ONE (13:39)
[2018-02-08] MEDS: LORAZEPAM 2MG/ML CPJ IV PRN (14:27)
[2018-02-08 16:09] LABS: BG BASE EXCESS -1.3 mmol/L (-2.0-2.0); BG CARBOXYHEMOGLOBIN 0.3 % (0.5-1.5); BG DEOXYHEMOGLOBIN 4.2 % (0.0-5.0); BG FRACTION INSPIRED OXYGEN 40; BG HCO3 ACT 23.4 mmol/L (22.0-26.0); BG METHEMOGLOBIN 0.1 % (0.0-1.5); BG OXYGEN SATURATION 95.8 % (92.0-98.5); BG OXYHEMOGLOBIN 95.4 % (94.0-97.0); BG PCO2 38.9 mmHg (35.0-45.0); BG PH 7.397 (7.350-7.450); BG PO2 86.6 mmHg (75.0-100.0); BG PRESSURE SUPPORT 8; BG SAMPLE SITE RIGHT RADIAL; BG TOTAL HEMOGLOBIN 9.7 g/dL (12.0-18.0); BG VENT MODE VENT - CPAP
[2018-02-08] MEDS ORDERED: RACEPINEPHRINE 2.25% 0.5ML NEB VIAL HHN PRN (16:45)
[2018-02-08 18:53] LABS: BG BASE EXCESS 1.3 mmol/L (-2.0-2.0); BG CARBOXYHEMOGLOBIN 0.5 % (0.5-1.5); BG DEOXYHEMOGLOBIN 8.6 % (0.0-5.0); BG FRACTION INSPIRED OXYGEN 40; BG HCO3 ACT 26.1 mmol/L (22.0-26.0); BG METHEMOGLOBIN 0.1 % (0.0-1.5); BG OXYGEN SATURATION 91.3 % (92.0-98.5); BG OXYHEMOGLOBIN 90.8 % (94.0-97.0); BG PH 7.411 (7.350-7.450); BG PO2 62.6 mmHg (75.0-100.0); BG SAMPLE SITE LEFT RADIAL; BG TIDAL VOLUME(mL) 500 mL; BG TOTAL HEMOGLOBIN 10.5 g/dL (12.0-18.0); BG VENT MODE VENT - A/C; BG VENT RATE 16 set
[2018-02-08] MEDS: HYDROCORTISONE SOD SUCCINATE 100 MG/2 ML VIAL IV SCH (21:00)
[2018-02-09] VITALS (63 sets, daily range): BP systolic 78–166; BP diastolic 38–80
[2018-02-09] MEDS: IPRATROPIUM/ALBUTEROL 0.5-3(2.5)MG/3ML NEB HHN SCH ×6 (00:10→20:51)
[2018-02-09] MEDS: PIPERACILLIN/TAZ 3.375G PREMIX 50 ML IV SCH ×3 (01:10→17:03)
[2018-02-09] MEDS: VANCOMYCIN 1250MG in DEXTROSE 5% WATER 250ML IV SCH ×2 (01:10→19:00)
[2018-02-09] MEDS: MIDAZOLAM HCL 50 MG in DEXTROSE 5% WATER 40 ML IV PRN ×3 (01:11→17:58)
[2018-02-09] MEDS: NOREPINEPHRINE 8 MG in DEXT 5% WATER 242 ML IV PRN ×2 (02:17→23:10)
[2018-02-09] MEDS: HYDROCORTISONE SOD SUCCINATE 100 MG/2 ML VIAL IV SCH ×3 (06:05→21:03)
[2018-02-09] MEDS: METOCLOPRAMIDE HCL 10MG/2ML VIAL IV SCH ×3 (06:06→17:03)
[2018-02-09] MEDS: PHENYTOIN SODIUM 100MG/2ML VIAL IV SCH ×3 (06:06→21:03)
[2018-02-09] MEDS: FENTANYL CITRATE/PF 500 MCG in SODIUM CHLORIDE 0.9% 40 ML IV PRN ×2 (06:11→13:54)
[2018-02-09 06:39] LABS: BASOPHILS % 0.4 % (0.0-2.0); EOSINOPHILS % 0.3 % (0.0-5.0); HEMATOCRIT. 29.1 % (42.0-52.0); HEMOGLOBIN. 9.4 g/dL (14.0-18.0); LYMPHOCYTES % 13.6 % (20.0-50.0); MEAN CORPUSCULAR HEMOGLOBIN 24.7 pg (28.0-32.0); MEAN CORPUSCULAR VOLUME 76.9 fL (80.0-94.0); MEAN PLATELET VOLUME 7.5 fl (7.4-10.4); MONOCYTES % 8.9 % (2.0-8.0); NEUTROPHILS % 76.8 % (40.0-76.0); PLATELET 426 x1000/uL (130-400); RED BLOOD CELL COUNT 3.79 mill/uL (4.7-6.1); RED CELL DISTRIBUTION WIDTH 18.2 % (11.6-14.6)
[2018-02-09 06:56] LABS: CHLORIDE 103 mEq/L (98-107)
[2018-02-09 07:02] LABS: PHOSPHORUS 4.2 mg/dL (2.5-4.9)
[2018-02-09 07:26] LABS: BG BASE EXCESS 0.3 mmol/L (-2.0-2.0); BG CARBOXYHEMOGLOBIN 0.3 % (0.5-1.5); BG DEOXYHEMOGLOBIN 1.3 % (0.0-5.0); BG FRACTION INSPIRED OXYGEN 40; BG HCO3 ACT 23.1 mmol/L (22.0-26.0); BG METHEMOGLOBIN 0.2 % (0.0-1.5); BG OXYGEN SATURATION 98.7 % (92.0-98.5); BG OXYHEMOGLOBIN 98.2 % (94.0-97.0); BG PCO2 30.6 mmHg (35.0-45.0); BG PH 7.496 (7.350-7.450); BG PO2 125.9 mmHg (75.0-100.0); BG SAMPLE SITE RIGHT RADIAL; BG TIDAL VOLUME(mL) 500 mL; BG TOTAL HEMOGLOBIN 9.7 g/dL (12.0-18.0); BG VENT MODE VENT - A/C; BG VENT RATE 16 set
[2018-02-09] MEDS ORDERED: SODIUM POLYSTYRENE SULFONATE 15 G/60 ML BOT PO SCH (07:45)
[2018-02-09] MEDS: AMLODIPINE 5MG TABLET PO SCH (09:00)
[2018-02-09] MEDS: PANTOPRAZOLE SODIUM 40 MG/VIAL IV SCH (09:01)
[2018-02-09] MEDS: CITRIC ACID/SODIUM CITRATE SOLN 15ML UDC PO SCH ×3 (09:01→17:03)
[2018-02-09] MEDS: LEVETIRACETAM 1,000 MG in SODIUM CHLORIDE 0.9% 100 ML IV SCH ×2 (10:06→20:42)
[2018-02-09] MEDS: IRON SUCROSE COMPLEX 100 MG/5 ML ML IV SCH (11:51)
[2018-02-09] MEDS ORDERED: SODIUM CHLORIDE 0.9% 500 ML IV NR (17:15)
[2018-02-10] VITALS (54 sets, daily range): BP systolic 93–165; BP diastolic 46–94
[2018-02-10] MEDS: IPRATROPIUM/ALBUTEROL 0.5-3(2.5)MG/3ML NEB HHN SCH ×6 (00:46→20:39)
[2018-02-10] MEDS: MIDAZOLAM HCL 50 MG in DEXTROSE 5% WATER 40 ML IV PRN ×3 (02:24→08:46)
[2018-02-10] MEDS: PIPERACILLIN/TAZ 3.375G PREMIX 50 ML IV SCH ×3 (02:27→18:21)
[2018-02-10] MEDS: FENTANYL CITRATE/PF 500 MCG in SODIUM CHLORIDE 0.9% 40 ML IV PRN ×3 (02:49→18:15)
[2018-02-10] MEDS: HYDROCORTISONE SOD SUCCINATE 100 MG/2 ML VIAL IV SCH ×3 (06:19→22:35)
[2018-02-10] MEDS: PHENYTOIN SODIUM 100MG/2ML VIAL IV SCH ×3 (06:20→22:35)
[2018-02-10] MEDS: METOCLOPRAMIDE HCL 10MG/2ML VIAL IV SCH ×4 (06:20→18:21)
[2018-02-10 06:48] LABS: BASOPHILS % 0.1 % (0.0-2.0); HEMATOCRIT. 27.4 % (42.0-52.0); HEMOGLOBIN. 8.8 g/dL (14.0-18.0); LYMPHOCYTES % 10.8 % (20.0-50.0); MEAN CORPUSCULAR HEMOGLOBIN 25.2 pg (28.0-32.0); MEAN CORPUSCULAR VOLUME 77.9 fL (80.0-94.0); MEAN PLATELET VOLUME 7.2 fl (7.4-10.4); NEUTROPHILS % 77.1 % (40.0-76.0); PLATELET 441 x1000/uL (130-400); RED BLOOD CELL COUNT 3.51 mill/uL (4.7-6.1); RED CELL DISTRIBUTION WIDTH 18.1 % (11.6-14.6)
[2018-02-10] MEDS ORDERED: POTASSIUM CHLORIDE INJ 40 MEQ in DEXT 5% WATER 250 ML IV ONE (08:30)
[2018-02-10] MEDS: KCL 20MEQ/100ML PREMIX 100 ML IV SCH ×2 (09:11→11:07)
[2018-02-10] MEDS: LEVETIRACETAM 1,000 MG in SODIUM CHLORIDE 0.9% 100 ML IV SCH ×2 (09:28→21:58)
[2018-02-10] MEDS: IRON SUCROSE COMPLEX 100 MG/5 ML ML IV SCH (09:28)
[2018-02-10] MEDS: PANTOPRAZOLE SODIUM 40 MG/VIAL IV SCH (09:28)
[2018-02-10] MEDS: CITRIC ACID/SODIUM CITRATE SOLN 15ML UDC PO SCH ×3 (09:57→18:23)
[2018-02-10] MEDS: DOCUSATE SODIUM SUGAR FREE 100MG/10ML UDC NG SCH (14:35)
[2018-02-10] MEDS: VANCOMYCIN 1250MG in DEXTROSE 5% WATER 250ML IV SCH (15:22)
[2018-02-10] MEDS ORDERED: KCL 20MEQ/100ML PREMIX 100 ML IV SCH (17:26)
[2018-02-11] VITALS (48 sets, daily range): BP systolic 96–157; BP diastolic 45–78
[2018-02-11] MEDS: IPRATROPIUM/ALBUTEROL 0.5-3(2.5)MG/3ML NEB HHN SCH ×6 (00:46→20:37)
[2018-02-11] MEDS: ACETYLCYSTEINE 100MG/ML 10% VIAL 4ML INH SCH ×3 (00:47→15:39)
[2018-02-11] MEDS: PIPERACILLIN/TAZ 3.375G PREMIX 50 ML IV SCH ×3 (01:53→18:19)
[2018-02-11] MEDS: METOCLOPRAMIDE HCL 10MG/2ML VIAL IV SCH ×4 (01:53→18:18)
[2018-02-11] MEDS: MIDAZOLAM HCL 50 MG in DEXTROSE 5% WATER 40 ML IV PRN ×2 (02:18→13:10)
[2018-02-11] MEDS: FENTANYL CITRATE/PF 500 MCG in SODIUM CHLORIDE 0.9% 40 ML IV PRN ×2 (05:33→20:44)
[2018-02-11 05:58] LABS: BASOPHILS % 0.4 % (0.0-2.0); HEMATOCRIT. 26.3 % (42.0-52.0); HEMOGLOBIN. 8.6 g/dL (14.0-18.0); LYMPHOCYTES % 9.7 % (20.0-50.0); MEAN CORPUSCULAR HEMOGLOBIN 25.5 pg (28.0-32.0); MEAN CORPUSCULAR VOLUME 77.6 fL (80.0-94.0); MEAN PLATELET VOLUME 7.6 fl (7.4-10.4); MONOCYTES % 8.3 % (2.0-8.0); NEUTROPHILS % 81.6 % (40.0-76.0); PLATELET 438 x1000/uL (130-400); RED BLOOD CELL COUNT 3.39 mill/uL (4.7-6.1); RED CELL DISTRIBUTION WIDTH 18.3 % (11.6-14.6)
[2018-02-11 06:15] LABS: PHOSPHORUS 3.5 mg/dL (2.5-4.9)
[2018-02-11] MEDS: PHENYTOIN SODIUM 100MG/2ML VIAL IV SCH ×3 (06:22→22:16)
[2018-02-11] MEDS: HYDROCORTISONE SOD SUCCINATE 100 MG/2 ML VIAL IV SCH ×3 (06:22→22:16)
[2018-02-11] MEDS ORDERED: LACTULOSE 20G/30ML UDC PO NR (07:45)
[2018-02-11] MEDS ORDERED: POTASSIUM CHLORIDE 20MEQ/PACKET PO NR (07:45)
[2018-02-11] MEDS: CITRIC ACID/SODIUM CITRATE SOLN 15ML UDC PO SCH ×3 (08:39→18:19)
[2018-02-11] MEDS: DOCUSATE SODIUM SUGAR FREE 100MG/10ML UDC NG SCH (08:39)
[2018-02-11] MEDS: PANTOPRAZOLE SODIUM 40 MG/VIAL IV SCH (08:40)
[2018-02-11] MEDS: IRON SUCROSE COMPLEX 100 MG/5 ML ML IV SCH (08:40)
[2018-02-11] MEDS: LEVETIRACETAM 1,000 MG in SODIUM CHLORIDE 0.9% 100 ML IV SCH ×2 (08:40→21:18)
[2018-02-11 09:09] LABS: BG BASE EXCESS 2.2 mmol/L (-2.0-2.0); BG CARBOXYHEMOGLOBIN 0.4 % (0.5-1.5); BG DEOXYHEMOGLOBIN 3.3 % (0.0-5.0); BG FRACTION INSPIRED OXYGEN 40; BG HCO3 ACT 25.5 mmol/L (22.0-26.0); BG METHEMOGLOBIN 0.1 % (0.0-1.5); BG OXYGEN SATURATION 96.7 % (92.0-98.5); BG OXYHEMOGLOBIN 96.2 % (94.0-97.0); BG PCO2 34.4 mmHg (35.0-45.0); BG PH 7.488 (7.350-7.450); BG PO2 89.9 mmHg (75.0-100.0); BG SAMPLE SITE RIGHT RADIAL; BG TIDAL VOLUME(mL) 500 mL; BG TOTAL HEMOGLOBIN 9.2 g/dL (12.0-18.0); BG VENT MODE VENT - A/C; BG VENT RATE 16 set
[2018-02-11] MEDS ORDERED: KCL 20MEQ/100ML PREMIX 100 ML IV NR (12:30)
[2018-02-11] MEDS: VANCOMYCIN 1250MG in DEXTROSE 5% WATER 250ML IV SCH (14:19)
[2018-02-12] VITALS (79 sets, daily range): BP systolic 114–168; BP diastolic 49–91
[2018-02-12] MEDS: ACETYLCYSTEINE 100MG/ML 10% VIAL 4ML INH SCH ×3 (00:33→17:24)
[2018-02-12] MEDS: IPRATROPIUM/ALBUTEROL 0.5-3(2.5)MG/3ML NEB HHN SCH ×6 (00:33→20:28)
[2018-02-12] MEDS: METOCLOPRAMIDE HCL 10MG/2ML VIAL IV SCH ×4 (01:00→18:44)
[2018-02-12] MEDS: MIDAZOLAM HCL 50 MG in DEXTROSE 5% WATER 40 ML IV PRN ×2 (01:33→16:15)
[2018-02-12] MEDS: PIPERACILLIN/TAZ 3.375G PREMIX 50 ML IV SCH ×3 (03:58→18:44)
[2018-02-12 06:07] LABS: BASOPHILS % 0.1 % (0.0-2.0); HEMOGLOBIN. 8.5 g/dL (14.0-18.0); LYMPHOCYTES % 9.7 % (20.0-50.0); MEAN CORPUSCULAR HEMOGLOBIN 25.5 pg (28.0-32.0); MEAN CORPUSCULAR VOLUME 78.3 fL (80.0-94.0); MEAN PLATELET VOLUME 7.3 fl (7.4-10.4); MONOCYTES % 9.2 % (2.0-8.0); PLATELET 441 x1000/uL (130-400); RED BLOOD CELL COUNT 3.32 mill/uL (4.7-6.1); RED CELL DISTRIBUTION WIDTH 18.7 % (11.6-14.6)
[2018-02-12] MEDS: PHENYTOIN SODIUM 100MG/2ML VIAL IV SCH ×3 (06:14→22:07)
[2018-02-12] MEDS: HYDROCORTISONE SOD SUCCINATE 100 MG/2 ML VIAL IV SCH ×3 (06:14→22:07)
[2018-02-12 06:34] LABS: PHOSPHORUS 3.4 mg/dL (2.5-4.9)
[2018-02-12 06:52] LABS: BG BASE EXCESS 4.5 mmol/L (-2.0-2.0); BG CARBOXYHEMOGLOBIN 0.2 % (0.5-1.5); BG DEOXYHEMOGLOBIN 2.8 % (0.0-5.0); BG HCO3 ACT 28.3 mmol/L (22.0-26.0); BG METHEMOGLOBIN 0.1 % (0.0-1.5); BG OXYGEN SATURATION 97.2 % (92.0-98.5); BG OXYHEMOGLOBIN 96.9 % (94.0-97.0); BG PCO2 38.7 mmHg (35.0-45.0); BG PH 7.482 (7.350-7.450); BG PO2 97.2 mmHg (75.0-100.0); BG SAMPLE SITE RIGHT RADIAL; BG TIDAL VOLUME(mL) 500 mL; BG TOTAL HEMOGLOBIN 8.8 g/dL (12.0-18.0); BG VENT MODE VENT - A/C; BG VENT RATE 16 set
[2018-02-12] MEDS: FENTANYL CITRATE/PF 500 MCG in SODIUM CHLORIDE 0.9% 40 ML IV PRN (07:23)
[2018-02-12] MEDS ORDERED: POTASSIUM CHLORIDE INJ 60 MEQ in DEXT 5% WATER 500 ML IV NR (08:30)
[2018-02-12] MEDS: DOCUSATE SODIUM SUGAR FREE 100MG/10ML UDC NG SCH (09:00)
[2018-02-12] MEDS: CITRIC ACID/SODIUM CITRATE SOLN 15ML UDC PO SCH ×2 (09:00→13:00)
[2018-02-12] MEDS: IRON SUCROSE COMPLEX 100 MG/5 ML ML IV SCH (09:02)
[2018-02-12] MEDS: LEVETIRACETAM 1,000 MG in SODIUM CHLORIDE 0.9% 100 ML IV SCH ×2 (09:02→21:23)
[2018-02-12] MEDS: PANTOPRAZOLE SODIUM 40 MG/VIAL IV SCH (09:02)
[2018-02-12] MEDS: VANCOMYCIN 1250MG in DEXTROSE 5% WATER 250ML IV SCH (15:39)
[2018-02-13] VITALS (56 sets, daily range): BP systolic 110–177; BP diastolic 56–94
[2018-02-13] MEDS: METOCLOPRAMIDE HCL 10MG/2ML VIAL IV SCH ×5 (00:17→23:40)
[2018-02-13] MEDS: IPRATROPIUM/ALBUTEROL 0.5-3(2.5)MG/3ML NEB HHN SCH ×6 (00:24→20:24)
[2018-02-13] MEDS: ACETYLCYSTEINE 100MG/ML 10% VIAL 4ML INH SCH ×3 (00:24→15:40)
[2018-02-13] MEDS: PIPERACILLIN/TAZ 3.375G PREMIX 50 ML IV SCH ×3 (03:03→19:45)
[2018-02-13 05:42] LABS: BASOPHILS % 0.1 % (0.0-2.0); HEMATOCRIT. 25.8 % (42.0-52.0); HEMOGLOBIN. 8.4 g/dL (14.0-18.0); LYMPHOCYTES % 14.8 % (20.0-50.0); MEAN CORPUSCULAR HEMOGLOBIN 25.8 pg (28.0-32.0); MEAN CORPUSCULAR VOLUME 79.3 fL (80.0-94.0); MEAN PLATELET VOLUME 7.3 fl (7.4-10.4); MONOCYTES % 9.8 % (2.0-8.0); NEUTROPHILS % 75.3 % (40.0-76.0); PLATELET 435 x1000/uL (130-400); RED BLOOD CELL COUNT 3.26 mill/uL (4.7-6.1); RED CELL DISTRIBUTION WIDTH 18.6 % (11.6-14.6)
[2018-02-13 05:44] LABS: CHLORIDE 113 mEq/L (98-107)
[2018-02-13 05:56] LABS: PHOSPHORUS 3.2 mg/dL (2.5-4.9)
[2018-02-13] MEDS: PHENYTOIN SODIUM 100MG/2ML VIAL IV SCH ×3 (06:16→22:12)
[2018-02-13] MEDS: HYDROCORTISONE SOD SUCCINATE 100 MG/2 ML VIAL IV SCH ×3 (06:17→22:12)
[2018-02-13] MEDS ORDERED: POTASSIUM CHLORIDE 20MEQ/PACKET PO NR (07:00)
[2018-02-13] MEDS: FENTANYL CITRATE/PF 500 MCG in SODIUM CHLORIDE 0.9% 40 ML IV PRN ×2 (07:19→07:30)
[2018-02-13] MEDS: DOCUSATE SODIUM SUGAR FREE 100MG/10ML UDC NG SCH (09:00)
[2018-02-13] MEDS: PANTOPRAZOLE SODIUM 40 MG/VIAL IV SCH (09:55)
[2018-02-13] MEDS: IRON SUCROSE COMPLEX 100 MG/5 ML ML IV SCH (09:55)
[2018-02-13] MEDS: LEVETIRACETAM 1,000 MG in SODIUM CHLORIDE 0.9% 100 ML IV SCH ×2 (09:56→21:14)
[2018-02-13] MEDS ORDERED: POTASSIUM CHLORIDE 20MEQ/PACKET NG SCH (11:45)
[2018-02-13] MEDS ORDERED: DEXT 5% WATER + KCL 20MEQ/L 1,000 ML IV ONE (13:00)
[2018-02-13 14:10] LABS: BG BASE EXCESS 3.5 mmol/L (-2.0-2.0); BG DEOXYHEMOGLOBIN 3.1 % (0.0-5.0); BG FRACTION INSPIRED OXYGEN 40; BG HCO3 ACT 28.6 mmol/L (22.0-26.0); BG OXYGEN SATURATION 96.9 % (92.0-98.5); BG OXYHEMOGLOBIN 96.9 % (94.0-97.0); BG PCO2 46.2 mmHg (35.0-45.0); BG PO2 97.7 mmHg (75.0-100.0); BG PRESSURE SUPPORT 8; BG SAMPLE SITE RIGHT BRACHIAL; BG TIDAL VOLUME(mL) 500 mL; BG TOTAL HEMOGLOBIN 9.7 g/dL (12.0-18.0); BG VENT MODE VENT - SIMV; BG VENT RATE 8 set
[2018-02-13] MEDS: VANCOMYCIN 1250MG in DEXTROSE 5% WATER 250ML IV SCH (15:03)
[2018-02-13] MEDS: MIDAZOLAM HCL 50 MG in DEXTROSE 5% WATER 40 ML IV PRN (21:15)
[2018-02-14] VITALS (65 sets, daily range): BP systolic 120–171; BP diastolic 56–87
[2018-02-14] MEDS: IPRATROPIUM/ALBUTEROL 0.5-3(2.5)MG/3ML NEB HHN SCH ×5 (00:05→17:09)
[2018-02-14] MEDS: ACETYLCYSTEINE 100MG/ML 10% VIAL 4ML INH SCH ×3 (00:05→17:09)
[2018-02-14] MEDS: MIDAZOLAM HCL 50 MG in DEXTROSE 5% WATER 40 ML IV PRN ×2 (02:01→20:00)
[2018-02-14] MEDS: PIPERACILLIN/TAZ 3.375G PREMIX 50 ML IV SCH ×3 (03:05→18:01)
[2018-02-14 05:18] LABS: BASOPHILS % 0.1 % (0.0-2.0); HEMOGLOBIN. 8.5 g/dL (14.0-18.0); LYMPHOCYTES % 9.5 % (20.0-50.0); MEAN CORPUSCULAR HEMOGLOBIN 25.4 pg (28.0-32.0); MEAN CORPUSCULAR VOLUME 80.4 fL (80.0-94.0); MEAN PLATELET VOLUME 7.5 fl (7.4-10.4); MONOCYTES % 7.9 % (2.0-8.0); NEUTROPHILS % 82.5 % (40.0-76.0); PLATELET 463 x1000/uL (130-400); RED BLOOD CELL COUNT 3.36 mill/uL (4.7-6.1); RED CELL DISTRIBUTION WIDTH 19.4 % (11.6-14.6)
[2018-02-14 05:29] LABS: CHLORIDE 112 mEq/L (98-107)
[2018-02-14 05:38] LABS: PHOSPHORUS 2.6 mg/dL (2.5-4.9)
[2018-02-14] MEDS: METOCLOPRAMIDE HCL 10MG/2ML VIAL IV SCH ×4 (05:54→23:43)
[2018-02-14] MEDS: PHENYTOIN SODIUM 100MG/2ML VIAL IV SCH ×3 (05:54→21:43)
[2018-02-14] MEDS: HYDROCORTISONE SOD SUCCINATE 100 MG/2 ML VIAL IV SCH ×3 (05:54→21:43)
[2018-02-14] MEDS ORDERED: POTASSIUM CHLORIDE INJ 40 MEQ in DEXT 5% WATER 250 ML IV ONE (07:00)
[2018-02-14] MEDS: IRON SUCROSE COMPLEX 100 MG/5 ML ML IV SCH (08:16)
[2018-02-14] MEDS: KCL 20MEQ/100ML PREMIX 100 ML IV SCH ×2 (08:16→11:49)
[2018-02-14] MEDS: PANTOPRAZOLE SODIUM 40 MG/VIAL IV SCH (08:16)
[2018-02-14] MEDS: DOCUSATE SODIUM SUGAR FREE 100MG/10ML UDC NG SCH (09:00)
[2018-02-14] MEDS: LEVETIRACETAM 1,000 MG in SODIUM CHLORIDE 0.9% 100 ML IV SCH ×2 (09:18→21:43)
[2018-02-14] MEDS: FENTANYL CITRATE/PF 500 MCG in SODIUM CHLORIDE 0.9% 40 ML IV PRN (09:19)
[2018-02-14 14:20] LABS: BG BASE EXCESS 5.1 mmol/L (-2.0-2.0); BG CARBOXYHEMOGLOBIN 0.5 % (0.5-1.5); BG DEOXYHEMOGLOBIN 8.2 % (0.0-5.0); BG FRACTION INSPIRED OXYGEN 40; BG HCO3 ACT 30.2 mmol/L (22.0-26.0); BG METHEMOGLOBIN 0.1 % (0.0-1.5); BG OXYGEN SATURATION 91.8 % (92.0-98.5); BG OXYHEMOGLOBIN 91.2 % (94.0-97.0); BG PCO2 46.9 mmHg (35.0-45.0); BG PH 7.426 (7.350-7.450); BG PO2 62.7 mmHg (75.0-100.0); BG PRESSURE SUPPORT 8; BG SAMPLE SITE RIGHT RADIAL; BG TIDAL VOLUME(mL) 500 mL; BG TOTAL HEMOGLOBIN 10.4 g/dL (12.0-18.0); BG VENT MODE VENT - SIMV; BG VENT RATE 6 set
[2018-02-14] MEDS: VANCOMYCIN 1250MG in DEXTROSE 5% WATER 250ML IV SCH (15:35)
[2018-02-14 19:50] LABS: BG BASE EXCESS 2.3 mmol/L (-2.0-2.0); BG CARBOXYHEMOGLOBIN 0.1 % (0.5-1.5); BG DEOXYHEMOGLOBIN 3.2 % (0.0-5.0); BG FRACTION INSPIRED OXYGEN 45; BG HCO3 ACT 28.3 mmol/L (22.0-26.0); BG METHEMOGLOBIN 0.2 % (0.0-1.5); BG OXYGEN SATURATION 96.8 % (92.0-98.5); BG OXYHEMOGLOBIN 96.5 % (94.0-97.0); BG PCO2 50.9 mmHg (35.0-45.0); BG PH 7.363 (7.350-7.450); BG PO2 95.1 mmHg (75.0-100.0); BG PRESSURE SUPPORT 8; BG SAMPLE SITE RIGHT RADIAL; BG TIDAL VOLUME(mL) 500 mL; BG TOTAL HEMOGLOBIN 9.7 g/dL (12.0-18.0); BG VENT MODE VENT - SIMV; BG VENT RATE 4 set
[2018-02-15] VITALS (55 sets, daily range): BP systolic 127–181; BP diastolic 35–101
[2018-02-15] MEDS: IPRATROPIUM/ALBUTEROL 0.5-3(2.5)MG/3ML NEB HHN SCH ×6 (00:38→19:59)
[2018-02-15] MEDS: ACETYLCYSTEINE 100MG/ML 10% VIAL 4ML INH SCH ×3 (00:39→15:52)
[2018-02-15] MEDS ORDERED: FENTANYL CITRATE/PF 500 MCG in SODIUM CHLORIDE 0.9% 40 ML IV PRN (01:00)
[2018-02-15] MEDS: PIPERACILLIN/TAZ 3.375G PREMIX 50 ML IV SCH ×3 (02:31→20:58)
[2018-02-15] MEDS: PHENYTOIN SODIUM 100MG/2ML VIAL IV SCH ×3 (05:15→22:19)
[2018-02-15] MEDS: HYDROCORTISONE SOD SUCCINATE 100 MG/2 ML VIAL IV SCH ×3 (05:16→23:17)
[2018-02-15] MEDS: METOCLOPRAMIDE HCL 10MG/2ML VIAL IV SCH ×4 (05:16→23:17)
[2018-02-15 05:35] LABS: BASOPHILS % 0.1 % (0.0-2.0); EOSINOPHILS % 0.1 % (0.0-5.0); HEMOGLOBIN. 8.6 g/dL (14.0-18.0); LYMPHOCYTES % 11.2 % (20.0-50.0); MEAN CORPUSCULAR HEMOGLOBIN 25.7 pg (28.0-32.0); MEAN CORPUSCULAR VOLUME 80.4 fL (80.0-94.0); MEAN PLATELET VOLUME 7.7 fl (7.4-10.4); MONOCYTES % 6.7 % (2.0-8.0); NEUTROPHILS % 81.9 % (40.0-76.0); PLATELET 441 x1000/uL (130-400); RED BLOOD CELL COUNT 3.36 mill/uL (4.7-6.1); RED CELL DISTRIBUTION WIDTH 18.8 % (11.6-14.6)
[2018-02-15 05:47] LABS: CHLORIDE 108 mEq/L (98-107)
[2018-02-15 05:58] LABS: PHOSPHORUS 2.4 mg/dL (2.5-4.9)
[2018-02-15] MEDS ORDERED: POTASSIUM PHOS,M-BASIC-D-BASIC 15 MMOL in DEXT 5% WATER 245 ML IV SCH (08:00)
[2018-02-15] MEDS: MIDAZOLAM HCL 50 MG in DEXTROSE 5% WATER 40 ML IV PRN ×2 (08:18→22:20)
[2018-02-15] MEDS: DOCUSATE SODIUM SUGAR FREE 100MG/10ML UDC NG SCH (08:50)
[2018-02-15 08:57] LABS: BG BASE EXCESS 6.5 mmol/L (-2.0-2.0); BG CARBOXYHEMOGLOBIN 0.6 % (0.5-1.5); BG DEOXYHEMOGLOBIN 2.1 % (0.0-5.0); BG FRACTION INSPIRED OXYGEN 45; BG HCO3 ACT 31.5 mmol/L (22.0-26.0); BG METHEMOGLOBIN 0.3 % (0.0-1.5); BG OXYGEN SATURATION 97.9 % (92.0-98.5); BG PCO2 48.1 mmHg (35.0-45.0); BG PH 7.434 (7.350-7.450); BG PO2 105.2 mmHg (75.0-100.0); BG PRESSURE SUPPORT 12; BG SAMPLE SITE RIGHT RADIAL; BG TIDAL VOLUME(mL) 500 mL; BG TOTAL HEMOGLOBIN 9.1 g/dL (12.0-18.0); BG VENT MODE VENT - SIMV; BG VENT RATE 10 set
[2018-02-15] MEDS: LEVETIRACETAM 1,000 MG in SODIUM CHLORIDE 0.9% 100 ML IV SCH ×2 (08:59→22:19)
[2018-02-15] MEDS: PANTOPRAZOLE SODIUM 40 MG/VIAL IV SCH (08:59)
[2018-02-15 11:27] LABS: BG BASE EXCESS 4.4 mmol/L (-2.0-2.0); BG CARBOXYHEMOGLOBIN 0.3 % (0.5-1.5); BG FRACTION INSPIRED OXYGEN 45; BG HCO3 ACT 29.1 mmol/L (22.0-26.0); BG METHEMOGLOBIN 0.2 % (0.0-1.5); BG OXYHEMOGLOBIN 97.5 % (94.0-97.0); BG PCO2 44.5 mmHg (35.0-45.0); BG PH 7.434 (7.350-7.450); BG PO2 107.4 mmHg (75.0-100.0); BG PRESSURE SUPPORT 8; BG SAMPLE SITE RIGHT RADIAL; BG TOTAL HEMOGLOBIN 9.5 g/dL (12.0-18.0); BG VENT MODE VENT - CPAP
[2018-02-15] MEDS: VANCOMYCIN 1250MG in DEXTROSE 5% WATER 250ML IV SCH (14:08)
[2018-02-15] MEDS ORDERED: FUROSEMIDE 40MG/4ML VIAL IVP SCH (14:45)
[2018-02-15 14:51] LABS: BG CARBOXYHEMOGLOBIN 0.4 % (0.5-1.5); BG DEOXYHEMOGLOBIN 2.7 % (0.0-5.0); BG FRACTION INSPIRED OXYGEN 45; BG HCO3 ACT 29.6 mmol/L (22.0-26.0); BG METHEMOGLOBIN 0.2 % (0.0-1.5); BG OXYGEN SATURATION 97.3 % (92.0-98.5); BG OXYHEMOGLOBIN 96.7 % (94.0-97.0); BG PCO2 43.8 mmHg (35.0-45.0); BG PH 7.447 (7.350-7.450); BG PO2 92.9 mmHg (75.0-100.0); BG PRESSURE SUPPORT 8; BG SAMPLE SITE RIGHT RADIAL; BG TOTAL HEMOGLOBIN 9.4 g/dL (12.0-18.0); BG VENT MODE VENT - CPAP
[2018-02-15] MEDS ORDERED: KCL 20MEQ/100ML PREMIX 100 ML IV NR ×2 (16:00→18:00)
[2018-02-16] VITALS (48 sets, daily range): BP systolic 117–188; BP diastolic 55–113
[2018-02-16] MEDS: ACETYLCYSTEINE 100MG/ML 10% VIAL 4ML INH SCH (00:08)
[2018-02-16] MEDS: IPRATROPIUM/ALBUTEROL 0.5-3(2.5)MG/3ML NEB HHN SCH ×6 (00:17→20:55)
[2018-02-16] MEDS: PIPERACILLIN/TAZ 3.375G PREMIX 50 ML IV SCH ×3 (03:48→18:06)
[2018-02-16 05:35] LABS: EOSINOPHILS % 0.1 % (0.0-5.0); HEMATOCRIT. 27.5 % (42.0-52.0); HEMOGLOBIN. 8.7 g/dL (14.0-18.0); LYMPHOCYTES % 9.4 % (20.0-50.0); MEAN CORPUSCULAR HEMOGLOBIN 25.5 pg (28.0-32.0); MEAN CORPUSCULAR VOLUME 80.3 fL (80.0-94.0); MEAN PLATELET VOLUME 7.8 fl (7.4-10.4); MONOCYTES % 5.8 % (2.0-8.0); NEUTROPHILS % 84.7 % (40.0-76.0); PLATELET 448 x1000/uL (130-400); RED BLOOD CELL COUNT 3.42 mill/uL (4.7-6.1)
[2018-02-16 05:37] LABS: CHLORIDE 106 mEq/L (98-107)
[2018-02-16 05:50] LABS: PHOSPHORUS 2.4 mg/dL (2.5-4.9)
[2018-02-16] MEDS: PHENYTOIN SODIUM 100MG/2ML VIAL IV SCH ×3 (06:14→20:06)
[2018-02-16] MEDS: METOCLOPRAMIDE HCL 10MG/2ML VIAL IV SCH ×3 (06:14→17:45)
[2018-02-16] MEDS: HYDROCORTISONE SOD SUCCINATE 100 MG/2 ML VIAL IV SCH ×3 (06:14→20:06)
[2018-02-16] MEDS: LEVETIRACETAM 1,000 MG in SODIUM CHLORIDE 0.9% 100 ML IV SCH ×2 (08:00→20:41)
[2018-02-16] MEDS: DOCUSATE SODIUM SUGAR FREE 100MG/10ML UDC NG SCH (08:00)
[2018-02-16] MEDS: PANTOPRAZOLE SODIUM 40 MG/VIAL IV SCH (08:00)
[2018-02-16] MEDS ORDERED: MAGNESIUM 2 G PREMIX 50 ML IV SCH (09:00)
[2018-02-16] MEDS ORDERED: POTASSIUM PHOS,M-BASIC-D-BASIC 20 MMOL in DEXT 5% WATER 243.3333 ML IV SCH (09:00)
[2018-02-16] MEDS: AMLODIPINE 2.5MG TABLET NG SCH (10:05)
[2018-02-16] MEDS: DIPHENHYDRAMINE 50MG/ML VIAL IV PRN ×2 (10:06→16:16)
[2018-02-16] MEDS: FUROSEMIDE 40MG/4ML VIAL IVP SCH (10:06)
[2018-02-16] MEDS: LORAZEPAM 2MG/ML CPJ IV PRN ×2 (12:05→16:16)
[2018-02-16] MEDS: FERROUS SULFATE 300MG/5ML UDC PO SCH ×2 (14:04→17:45)
[2018-02-16] MEDS: VANCOMYCIN 1250MG in DEXTROSE 5% WATER 250ML IV SCH (14:05)
[2018-02-17] VITALS (60 sets, daily range): BP systolic 107–197; BP diastolic 52–128
[2018-02-17] MEDS: IPRATROPIUM/ALBUTEROL 0.5-3(2.5)MG/3ML NEB HHN SCH ×6 (00:52→20:22)
[2018-02-17] MEDS: METOCLOPRAMIDE HCL 10MG/2ML VIAL IV SCH ×4 (01:00→16:51)
[2018-02-17] MEDS: LORAZEPAM 2MG/ML CPJ IV PRN ×2 (01:20→07:06)
[2018-02-17 05:30] LABS: INR 1.1; PARTIAL THROMBOPLASTIN TIME 25.5 sec (23.4-31.0); PROTHROMBIN TIME 11.4 sec (9.4-11.6)
[2018-02-17 05:40] LABS: EOSINOPHILS % 0.3 % (0.0-5.0); HEMATOCRIT. 27.5 % (42.0-52.0); HEMOGLOBIN. 8.9 g/dL (14.0-18.0); MEAN CORPUSCULAR HEMOGLOBIN 25.7 pg (28.0-32.0); MEAN CORPUSCULAR VOLUME 79.5 fL (80.0-94.0); MEAN PLATELET VOLUME 8.1 fl (7.4-10.4); MONOCYTES % 9.1 % (2.0-8.0); NEUTROPHILS % 77.6 % (40.0-76.0); PLATELET 448 x1000/uL (130-400); RED BLOOD CELL COUNT 3.46 mill/uL (4.7-6.1); RED CELL DISTRIBUTION WIDTH 19.3 % (11.6-14.6)
[2018-02-17 05:44] LABS: CHLORIDE 105 mEq/L (98-107)
[2018-02-17 06:03] LABS: PHOSPHORUS 2.5 mg/dL (2.5-4.9)
[2018-02-17] MEDS: HYDROCORTISONE SOD SUCCINATE 100 MG/2 ML VIAL IV SCH ×3 (07:06→21:04)
[2018-02-17] MEDS: PHENYTOIN SODIUM 100MG/2ML VIAL IV SCH ×3 (07:06→21:04)
[2018-02-17] MEDS: DIPHENHYDRAMINE 50MG/ML VIAL IV PRN (07:06)
[2018-02-17] MEDS: PIPERACILLIN/TAZ 3.375G PREMIX 50 ML IV SCH ×3 (07:10→18:15)
[2018-02-17] MEDS ORDERED: POTASSIUM CHLORIDE INJ 40 MEQ in DEXT 5% WATER 250 ML IV ONE (07:30)
[2018-02-17] MEDS: FERROUS SULFATE 300MG/5ML UDC PO SCH ×3 (07:43→16:50)
[2018-02-17] MEDS: DOCUSATE SODIUM SUGAR FREE 100MG/10ML UDC NG SCH (08:06)
[2018-02-17] MEDS: POTASSIUM CHLORIDE 20MEQ/PACKET NG SCH (08:06)
[2018-02-17] MEDS: PANTOPRAZOLE SODIUM 40 MG/VIAL IV SCH (08:11)
[2018-02-17] MEDS: AMLODIPINE 2.5MG TABLET NG SCH (08:11)
[2018-02-17] MEDS: FUROSEMIDE 40MG/4ML VIAL IVP SCH (08:11)
[2018-02-17] MEDS: ONDANSETRON HCL 4MG/2ML VIAL IV PRN (08:14)
[2018-02-17] MEDS: MORPHINE SULFATE 4 MG/ML CPJ (NOT FOR IM USE) IV PRN (08:15)
[2018-02-17 08:28] LABS: BG BASE EXCESS 8.3 mmol/L (-2.0-2.0); BG CARBOXYHEMOGLOBIN 0.1 % (0.5-1.5); BG DEOXYHEMOGLOBIN 3.7 % (0.0-5.0); BG FRACTION INSPIRED OXYGEN 45; BG HCO3 ACT 32.8 mmol/L (22.0-26.0); BG OXYGEN SATURATION 96.3 % (92.0-98.5); BG OXYHEMOGLOBIN 96.2 % (94.0-97.0); BG PO2 84.2 mmHg (75.0-100.0); BG PRESSURE SUPPORT 10; BG SAMPLE SITE RIGHT BRACHIAL; BG TIDAL VOLUME(mL) 500 mL; BG TOTAL HEMOGLOBIN 10.5 g/dL (12.0-18.0); BG VENT MODE VENT - SIMV; BG VENT RATE 8 set
[2018-02-17] MEDS: LEVETIRACETAM 1,000 MG in SODIUM CHLORIDE 0.9% 100 ML IV SCH ×2 (08:48→20:47)
[2018-02-17] MEDS: KCL 20MEQ/100ML PREMIX 100 ML IV SCH ×3 (08:48→12:57)
[2018-02-17] MEDS: PROPOFOL 10MG/ML 100ML 100 ML IV PRN ×2 (11:21→16:52)
[2018-02-17] MEDS ORDERED: LIDOCAINE HCL/EPINEPHRINE 1%-EPI 1:100,000 20 ML VIAL ONE (12:34)
[2018-02-17] MEDS ORDERED: ROCURONIUM BROMIDE 10MG/ML VIAL 5ML IV ONE ×2 (13:02→13:59)
[2018-02-17] MEDS ORDERED: PROPOFOL 200MG/20ML VIAL IV ONE (13:02)
[2018-02-17] MEDS ORDERED: FENTANYL CITRATE/PF 50MCG/ML 2ML VIAL ONE ×2 (13:02→16:58)
[2018-02-17] MEDS: VANCOMYCIN 1250MG in DEXTROSE 5% WATER 250ML IV SCH (15:16)
[2018-02-17] MEDS ORDERED: MIDAZOLAM HCL 5 MG/5 ML VIAL ONE (16:59)
[2018-02-17] MEDS ORDERED: SIMETHICONE 40 MG/0.6 ML 30ML ONE (17:01)
[2018-02-18] VITALS (50 sets, daily range): BP systolic 118–185; BP diastolic 47–107
[2018-02-18] MEDS: METOCLOPRAMIDE HCL 10MG/2ML VIAL IV SCH ×4 (00:05→17:35)
[2018-02-18] MEDS: IPRATROPIUM/ALBUTEROL 0.5-3(2.5)MG/3ML NEB HHN SCH ×6 (00:10→20:00)
[2018-02-18] MEDS: PIPERACILLIN/TAZ 3.375G PREMIX 50 ML IV SCH ×3 (02:56→20:22)
[2018-02-18] MEDS: HYDROCORTISONE SOD SUCCINATE 100 MG/2 ML VIAL IV SCH ×3 (05:28→22:26)
[2018-02-18] MEDS: PHENYTOIN SODIUM 100MG/2ML VIAL IV SCH ×3 (05:28→22:27)
[2018-02-18] MEDS: PROPOFOL 10MG/ML 100ML 100 ML IV PRN (05:38)
[2018-02-18 07:22] LABS: BG BASE EXCESS 6.1 mmol/L (-2.0-2.0); BG CARBOXYHEMOGLOBIN 0.5 % (0.5-1.5); BG DEOXYHEMOGLOBIN 2.4 % (0.0-5.0); BG FRACTION INSPIRED OXYGEN 45; BG HCO3 ACT 29.2 mmol/L (22.0-26.0); BG METHEMOGLOBIN 0.2 % (0.0-1.5); BG OXYGEN SATURATION 97.6 % (92.0-98.5); BG OXYHEMOGLOBIN 96.9 % (94.0-97.0); BG PCO2 36.5 mmHg (35.0-45.0); BG PH 7.521 (7.350-7.450); BG PO2 95.5 mmHg (75.0-100.0); BG SAMPLE SITE RIGHT RADIAL; BG TIDAL VOLUME(mL) 500 mL; BG TOTAL HEMOGLOBIN 9.9 g/dL (12.0-18.0); BG VENT MODE VENT - A/C; BG VENT RATE 12 set
[2018-02-18] MEDS: PANTOPRAZOLE SODIUM 40 MG/VIAL IV SCH (09:04)
[2018-02-18] MEDS: POTASSIUM CHLORIDE 20MEQ/PACKET NG SCH (09:04)
[2018-02-18] MEDS: FUROSEMIDE 40MG/4ML VIAL IVP SCH (09:04)
[2018-02-18] MEDS: FERROUS SULFATE 300MG/5ML UDC PO SCH ×3 (09:04→17:35)
[2018-02-18] MEDS: DOCUSATE SODIUM SUGAR FREE 100MG/10ML UDC NG SCH (09:04)
[2018-02-18] MEDS: LEVETIRACETAM 1,000 MG in SODIUM CHLORIDE 0.9% 100 ML IV SCH ×2 (09:05→22:26)
[2018-02-18] MEDS: AMLODIPINE 2.5MG TABLET NG SCH (09:06)
[2018-02-18 09:26] LABS: CHLORIDE 106 mEq/L (98-107)
[2018-02-18 10:41] LABS: BASOPHILS % 0.2 % (0.0-2.0); HEMOGLOBIN. 9.1 g/dL (14.0-18.0); LYMPHOCYTES % 8.5 % (20.0-50.0); MEAN CORPUSCULAR HEMOGLOBIN 26.1 pg (28.0-32.0); MEAN CORPUSCULAR VOLUME 80.3 fL (80.0-94.0); MEAN PLATELET VOLUME 7.6 fl (7.4-10.4); MONOCYTES % 6.9 % (2.0-8.0); NEUTROPHILS % 84.4 % (40.0-76.0); PLATELET 524 x1000/uL (130-400); RED BLOOD CELL COUNT 3.49 mill/uL (4.7-6.1); RED CELL DISTRIBUTION WIDTH 20.2 % (11.6-14.6)
[2018-02-18 10:48] LABS: BG CARBOXYHEMOGLOBIN 0.3 % (0.5-1.5); BG DEOXYHEMOGLOBIN 3.5 % (0.0-5.0); BG HCO3 ACT 31.7 mmol/L (22.0-26.0); BG METHEMOGLOBIN 0.2 % (0.0-1.5); BG OXYGEN SATURATION 96.5 % (92.0-98.5); BG PCO2 40.7 mmHg (35.0-45.0); BG PH 7.509 (7.350-7.450); BG PO2 89.6 mmHg (75.0-100.0); BG PRESSURE SUPPORT 14; BG SAMPLE SITE RIGHT RADIAL; BG TIDAL VOLUME(mL) 500 mL; BG VENT MODE VENT - SIMV; BG VENT RATE 6 set
[2018-02-18] MEDS ORDERED: KCL 20MEQ/100ML PREMIX 100 ML IV NR (13:00)
[2018-02-18] MEDS: DIPHENHYDRAMINE 50MG/ML VIAL IV PRN (13:07)
[2018-02-18] MEDS: ONDANSETRON HCL 4MG/2ML VIAL IV PRN (13:07)
[2018-02-18] MEDS: VANCOMYCIN 1250MG in DEXTROSE 5% WATER 250ML IV SCH (14:03)
[2018-02-18] MEDS: MORPHINE SULFATE 4 MG/ML CPJ (NOT FOR IM USE) IV PRN (17:36)
[2018-02-19] VITALS (12 sets, daily range): BP systolic 134–160; BP diastolic 60–99
[2018-02-19] MEDS: IPRATROPIUM/ALBUTEROL 0.5-3(2.5)MG/3ML NEB HHN SCH ×6 (00:05→20:00)
[2018-02-19] MEDS: METOCLOPRAMIDE HCL 10MG/2ML VIAL IV SCH ×5 (01:30→23:27)
[2018-02-19] MEDS: HYDROCORTISONE SOD SUCCINATE 100 MG/2 ML VIAL IV SCH ×2 (05:24→18:02)
[2018-02-19] MEDS: PHENYTOIN SODIUM 100MG/2ML VIAL IV SCH ×3 (05:24→21:35)
[2018-02-19 07:38] LABS: BASOPHILS % 0.1 % (0.0-2.0); EOSINOPHILS % 0.2 % (0.0-5.0); HEMATOCRIT. 26.2 % (42.0-52.0); HEMOGLOBIN. 8.5 g/dL (14.0-18.0); MEAN CORPUSCULAR HEMOGLOBIN 26.1 pg (28.0-32.0); MEAN CORPUSCULAR VOLUME 80.1 fL (80.0-94.0); MEAN PLATELET VOLUME 8.2 fl (7.4-10.4); MONOCYTES % 9.4 % (2.0-8.0); NEUTROPHILS % 78.3 % (40.0-76.0); PLATELET 450 x1000/uL (130-400); RED BLOOD CELL COUNT 3.27 mill/uL (4.7-6.1); RED CELL DISTRIBUTION WIDTH 19.7 % (11.6-14.6)
[2018-02-19 08:19] LABS: CHLORIDE 107 mEq/L (98-107)
[2018-02-19 08:29] LABS: PHOSPHORUS 2.5 mg/dL (2.5-4.9)
[2018-02-19] MEDS: DOCUSATE SODIUM SUGAR FREE 100MG/10ML UDC NG SCH (09:30)
[2018-02-19] MEDS: PANTOPRAZOLE SODIUM 40 MG/VIAL IV SCH (09:30)
[2018-02-19] MEDS ORDERED: POTASSIUM CHLORIDE 20MEQ/PACKET GT SCH (09:30)
[2018-02-19] MEDS: AMLODIPINE 5MG TABLET NG SCH (09:30)
[2018-02-19] MEDS: POTASSIUM CHLORIDE 20MEQ/PACKET NG SCH (09:30)
[2018-02-19] MEDS: FERROUS SULFATE 300MG/5ML UDC PO SCH ×3 (09:30→18:02)
[2018-02-19] MEDS: FUROSEMIDE 40MG/4ML VIAL IVP SCH (09:30)
[2018-02-19] MEDS: LEVETIRACETAM 1,000 MG in SODIUM CHLORIDE 0.9% 100 ML IV SCH ×2 (09:35→21:35)
[2018-02-19 10:42] LABS: BG CARBOXYHEMOGLOBIN 0.3 % (0.5-1.5); BG DEOXYHEMOGLOBIN 1.8 % (0.0-5.0); BG FRACTION INSPIRED OXYGEN 45; BG HCO3 ACT 32.8 mmol/L (22.0-26.0); BG METHEMOGLOBIN 0.1 % (0.0-1.5); BG OXYGEN SATURATION 98.2 % (92.0-98.5); BG OXYHEMOGLOBIN 97.8 % (94.0-97.0); BG PCO2 42.1 mmHg (35.0-45.0); BG PO2 115.1 mmHg (75.0-100.0); BG PRESSURE SUPPORT 10; BG SAMPLE SITE RIGHT RADIAL; BG TIDAL VOLUME(mL) 500 mL; BG TOTAL HEMOGLOBIN 9.3 g/dL (12.0-18.0); BG VENT MODE VENT - SIMV; BG VENT RATE 4 set
[2018-02-19] MEDS ORDERED: KCL 20MEQ/100ML PREMIX 100 ML IV SCH (11:00)
[2018-02-20] VITALS (12 sets, daily range): BP systolic 130–165; BP diastolic 55–88
[2018-02-20] MEDS: IPRATROPIUM/ALBUTEROL 0.5-3(2.5)MG/3ML NEB HHN SCH ×6 (00:39→20:31)
[2018-02-20] MEDS: HYDROCORTISONE SOD SUCCINATE 100 MG/2 ML VIAL IV SCH ×2 (05:36→17:55)
[2018-02-20] MEDS: PHENYTOIN SODIUM 100MG/2ML VIAL IV SCH ×2 (05:36→14:24)
[2018-02-20] MEDS: METOCLOPRAMIDE HCL 10MG/2ML VIAL IV SCH ×4 (05:36→23:06)
[2018-02-20 07:12] LABS: BG BASE EXCESS 8.3 mmol/L (-2.0-2.0); BG CARBOXYHEMOGLOBIN 0.3 % (0.5-1.5); BG CPAP (cmH2O) 0 cm(H2O); BG DEOXYHEMOGLOBIN 3.9 % (0.0-5.0); BG HCO3 ACT 33.1 mmol/L (22.0-26.0); BG METHEMOGLOBIN 0.3 % (0.0-1.5); BG OXYGEN SATURATION 96.1 % (92.0-98.5); BG OXYHEMOGLOBIN 95.5 % (94.0-97.0); BG PCO2 47.4 mmHg (35.0-45.0); BG PH 7.462 (7.350-7.450); BG PO2 85.5 mmHg (75.0-100.0); BG SAMPLE SITE RIGHT BRACHIAL; BG TOTAL HEMOGLOBIN 9.5 g/dL (12.0-18.0); BG VENT MODE VENT - CPAP
[2018-02-20] MEDS: AMLODIPINE 5MG TABLET NG SCH (09:04)
[2018-02-20] MEDS: FERROUS SULFATE 300MG/5ML UDC PO SCH ×3 (09:05→17:55)
[2018-02-20] MEDS: PANTOPRAZOLE SODIUM 40 MG/VIAL IV SCH (09:05)
[2018-02-20] MEDS: LEVETIRACETAM 1,000 MG in SODIUM CHLORIDE 0.9% 100 ML IV SCH (09:05)
[2018-02-20] MEDS: POTASSIUM CHLORIDE 20MEQ/PACKET NG SCH (09:05)
[2018-02-20] MEDS: DOCUSATE SODIUM SUGAR FREE 100MG/10ML UDC NG SCH (09:05)
[2018-02-20] MEDS: FUROSEMIDE 40MG/4ML VIAL IVP SCH (09:05)
[2018-02-20 09:24] LABS: BASOPHILS % 0.1 % (0.0-2.0); EOSINOPHILS % 1.4 % (0.0-5.0); HEMOGLOBIN. 9.2 g/dL (14.0-18.0); LYMPHOCYTES % 8.1 % (20.0-50.0); MEAN CORPUSCULAR HEMOGLOBIN 26.2 pg (28.0-32.0); MEAN CORPUSCULAR VOLUME 82.3 fL (80.0-94.0); MEAN PLATELET VOLUME 8.2 fl (7.4-10.4); MONOCYTES % 6.2 % (2.0-8.0); NEUTROPHILS % 84.2 % (40.0-76.0); PLATELET 426 x1000/uL (130-400); RED BLOOD CELL COUNT 3.52 mill/uL (4.7-6.1); RED CELL DISTRIBUTION WIDTH 20.6 % (11.6-14.6)
[2018-02-20 09:26] LABS: CHLORIDE 107 mEq/L (98-107)
[2018-02-20] MEDS ORDERED: POTASSIUM CHLORIDE INJ 60 MEQ in DEXT 5% WATER 500 ML IV NR (12:00)
[2018-02-20] MEDS: LEVETIRACETAM 500MG/5ML CUP GT SCH (20:22)
[2018-02-20] MEDS: PHENYTOIN 100 MG/4 ML UDC NG SCH (23:06)
[2018-02-21] VITALS (12 sets, daily range): BP systolic 124–162; BP diastolic 54–81
[2018-02-21] MEDS: IPRATROPIUM/ALBUTEROL 0.5-3(2.5)MG/3ML NEB HHN SCH ×6 (00:39→20:34)
[2018-02-21] MEDS: PHENYTOIN 100 MG/4 ML UDC NG SCH ×3 (06:26→21:28)
[2018-02-21] MEDS: HYDROCORTISONE SOD SUCCINATE 100 MG/2 ML VIAL IV SCH ×2 (06:26→17:51)
[2018-02-21] MEDS: METOCLOPRAMIDE HCL 10MG/2ML VIAL IV SCH ×3 (06:26→18:00)
[2018-02-21 08:25] LABS: BG CARBOXYHEMOGLOBIN 0.3 % (0.5-1.5); BG FRACTION INSPIRED OXYGEN 40; BG HCO3 ACT 32.3 mmol/L (22.0-26.0); BG METHEMOGLOBIN 0.3 % (0.0-1.5); BG OXYHEMOGLOBIN 95.4 % (94.0-97.0); BG PCO2 44.3 mmHg (35.0-45.0); BG PH 7.481 (7.350-7.450); BG PO2 80.9 mmHg (75.0-100.0); BG PRESSURE SUPPORT 10; BG SAMPLE SITE RIGHT BRACHIAL; BG TOTAL HEMOGLOBIN 9.6 g/dL (12.0-18.0); BG VENT MODE VENT - CPAP
[2018-02-21] MEDS: LEVETIRACETAM 500MG/5ML CUP GT SCH ×2 (08:34→21:28)
[2018-02-21] MEDS: PANTOPRAZOLE SODIUM 40 MG/VIAL IV SCH (08:34)
[2018-02-21] MEDS: FUROSEMIDE 40MG/4ML VIAL IVP SCH (08:34)
[2018-02-21] MEDS: DOCUSATE SODIUM SUGAR FREE 100MG/10ML UDC NG SCH (08:34)
[2018-02-21] MEDS: FERROUS SULFATE 300MG/5ML UDC PO SCH ×3 (08:34→17:51)
[2018-02-21] MEDS: POTASSIUM CHLORIDE 20MEQ/PACKET NG SCH (08:35)
[2018-02-21] MEDS: AMLODIPINE 5MG TABLET NG SCH (08:35)
[2018-02-21] MEDS ORDERED: CLONIDINE 0.1MG TABLET PO PRN (08:45)
[2018-02-21 10:11] LABS: HEMATOCRIT. 30.2 % (42.0-52.0); HEMOGLOBIN. 9.7 g/dL (14.0-18.0); MEAN CORPUSCULAR HEMOGLOBIN 26.3 pg (28.0-32.0); MEAN CORPUSCULAR VOLUME 81.9 fL (80.0-94.0); MEAN PLATELET VOLUME 8.4 fl (7.4-10.4); PLATELET 439 x1000/uL (130-400); RED BLOOD CELL COUNT 3.68 mill/uL (4.7-6.1); RED CELL DISTRIBUTION WIDTH 22.3 % (11.6-14.6)
[2018-02-21 10:20] LABS: CHLORIDE 105 mEq/L (98-107)
[2018-02-21 12:35] LABS: PLATELET ESTIMATE SLIGHTLY INCREASED
[2018-02-22] VITALS (12 sets, daily range): BP systolic 105–162; BP diastolic 55–79
[2018-02-22] MEDS: METOCLOPRAMIDE HCL 10MG/2ML VIAL IV SCH ×4 (00:09→17:21)
[2018-02-22] MEDS: IPRATROPIUM/ALBUTEROL 0.5-3(2.5)MG/3ML NEB HHN SCH ×6 (00:53→19:55)
[2018-02-22] MEDS: PHENYTOIN 100 MG/4 ML UDC NG SCH ×3 (05:04→21:17)
[2018-02-22] MEDS: HYDROCORTISONE SOD SUCCINATE 100 MG/2 ML VIAL IV SCH (05:05)
[2018-02-22] MEDS: FUROSEMIDE 40MG/4ML VIAL IVP SCH (08:37)
[2018-02-22] MEDS: POTASSIUM CHLORIDE 20MEQ/PACKET NG SCH (08:37)
[2018-02-22] MEDS: FERROUS SULFATE 300MG/5ML UDC PO SCH ×3 (08:37→17:21)
[2018-02-22] MEDS: DOCUSATE SODIUM SUGAR FREE 100MG/10ML UDC NG SCH (08:37)
[2018-02-22] MEDS: PANTOPRAZOLE SODIUM 40 MG/VIAL IV SCH (08:37)
[2018-02-22] MEDS: LEVETIRACETAM 500MG/5ML CUP GT SCH ×2 (08:37→21:17)
[2018-02-22] MEDS: AMLODIPINE 5MG TABLET NG SCH (08:37)
[2018-02-22 09:17] LABS: BASOPHILS % 0.2 % (0.0-2.0); EOSINOPHILS % 0.9 % (0.0-5.0); HEMATOCRIT. 29.2 % (42.0-52.0); HEMOGLOBIN. 9.5 g/dL (14.0-18.0); LYMPHOCYTES % 8.3 % (20.0-50.0); MEAN CORPUSCULAR HEMOGLOBIN 26.6 pg (28.0-32.0); MEAN CORPUSCULAR VOLUME 81.6 fL (80.0-94.0); MEAN PLATELET VOLUME 8.3 fl (7.4-10.4); MONOCYTES % 5.5 % (2.0-8.0); NEUTROPHILS % 85.1 % (40.0-76.0); PLATELET 460 x1000/uL (130-400); RED BLOOD CELL COUNT 3.58 mill/uL (4.7-6.1); RED CELL DISTRIBUTION WIDTH 22.3 % (11.6-14.6)
[2018-02-22 09:22] LABS: CHLORIDE 105 mEq/L (98-107)
[2018-02-22 09:28] LABS: PHOSPHORUS 2.1 mg/dL (2.5-4.9)
[2018-02-22] MEDS ORDERED: POTASSIUM CHLORIDE 20MEQ/PACKET GT NR (12:15)
[2018-02-22 13:52] LABS: BG BASE EXCESS 9.1 mmol/L (-2.0-2.0); BG CARBOXYHEMOGLOBIN 0.7 % (0.5-1.5); BG DEOXYHEMOGLOBIN 2.7 % (0.0-5.0); BG FRACTION INSPIRED OXYGEN 40; BG HCO3 ACT 33.6 mmol/L (22.0-26.0); BG METHEMOGLOBIN 0.1 % (0.0-1.5); BG OXYGEN SATURATION 97.3 % (92.0-98.5); BG OXYHEMOGLOBIN 96.5 % (94.0-97.0); BG PCO2 46.2 mmHg (35.0-45.0); BG PO2 93.1 mmHg (75.0-100.0); BG SAMPLE SITE RIGHT BRACHIAL; BG TOTAL HEMOGLOBIN 11.1 g/dL (12.0-18.0); BG VENT MODE MASK - AEROSOL
[2018-02-22] MEDS ORDERED: POTASSIUM PHOS,M-BASIC-D-BASIC 20 MMOL in DEXT 5% WATER 243.3333 ML IV NR (14:00)
[2018-02-22] MEDS: CEFAZOLIN 1000MG PREMIX 50 ML IV SCH (17:21)
[2018-02-22 20:08] LABS: BG BASE EXCESS 7.3 mmol/L (-2.0-2.0); BG CARBOXYHEMOGLOBIN 0.2 % (0.5-1.5); BG DEOXYHEMOGLOBIN 2.5 % (0.0-5.0); BG FRACTION INSPIRED OXYGEN 40; BG HCO3 ACT 31.5 mmol/L (22.0-26.0); BG OXYGEN SATURATION 97.5 % (92.0-98.5); BG OXYHEMOGLOBIN 97.3 % (94.0-97.0); BG PCO2 43.4 mmHg (35.0-45.0); BG PH 7.479 (7.350-7.450); BG PO2 97.7 mmHg (75.0-100.0); BG SAMPLE SITE RIGHT RADIAL; BG TOTAL HEMOGLOBIN 10.6 g/dL (12.0-18.0); BG VENT MODE MASK - TRACH
[2018-02-23] VITALS (15 sets, daily range): BP systolic 117–160; BP diastolic 60–89
[2018-02-23] MEDS: IPRATROPIUM/ALBUTEROL 0.5-3(2.5)MG/3ML NEB HHN SCH ×6 (00:11→20:07)
[2018-02-23] MEDS: METOCLOPRAMIDE HCL 10MG/2ML VIAL IV SCH ×4 (01:41→17:37)
[2018-02-23] MEDS: CEFAZOLIN 1000MG PREMIX 50 ML IV SCH ×3 (01:41→17:37)
[2018-02-23] MEDS: PHENYTOIN 100 MG/4 ML UDC NG SCH ×3 (05:35→21:30)
[2018-02-23] MEDS: POTASSIUM CHLORIDE 20MEQ/PACKET NG SCH (08:50)
[2018-02-23] MEDS: DOCUSATE SODIUM SUGAR FREE 100MG/10ML UDC NG SCH (08:50)
[2018-02-23] MEDS: RISPERIDONE 0.5MG TABLET PO SCH ×2 (08:51→21:30)
[2018-02-23] MEDS: LEVETIRACETAM 500MG/5ML CUP GT SCH ×2 (08:51→21:30)
[2018-02-23] MEDS: FUROSEMIDE 40MG/4ML VIAL IVP SCH (08:51)
[2018-02-23] MEDS: AMLODIPINE 5MG TABLET NG SCH (08:51)
[2018-02-23] MEDS: FERROUS SULFATE 300MG/5ML UDC PO SCH ×3 (08:51→17:37)
[2018-02-23] MEDS: PANTOPRAZOLE SODIUM 40 MG/VIAL IV SCH (08:51)
[2018-02-23 11:08] LABS: BASOPHILS % 0.5 % (0.0-2.0); EOSINOPHILS % 4.1 % (0.0-5.0); LYMPHOCYTES % 16.1 % (20.0-50.0); MEAN CORPUSCULAR HEMOGLOBIN 26.5 pg (28.0-32.0); MEAN CORPUSCULAR VOLUME 82.1 fL (80.0-94.0); MEAN PLATELET VOLUME 7.7 fl (7.4-10.4); MONOCYTES % 8.7 % (2.0-8.0); NEUTROPHILS % 70.6 % (40.0-76.0); PLATELET 518 x1000/uL (130-400); RED BLOOD CELL COUNT 4.25 mill/uL (4.7-6.1); RED CELL DISTRIBUTION WIDTH 22.7 % (11.6-14.6)
[2018-02-23 11:13] LABS: CHLORIDE 101 mEq/L (98-107)
[2018-02-23 11:18] LABS: HEMATOCRIT. 34.9 % (42.0-52.0); HEMOGLOBIN. 11.2 g/dL (14.0-18.0)
[2018-02-23] MEDS: ACETYLCYSTEINE 100MG/ML 10% VIAL 4ML INH SCH (17:32)
[2018-02-24] VITALS (11 sets, daily range): BP systolic 102–149; BP diastolic 57–80
[2018-02-24] MEDS: METOCLOPRAMIDE HCL 10MG/2ML VIAL IV SCH ×4 (00:09→19:21)
[2018-02-24] MEDS: ACETYLCYSTEINE 100MG/ML 10% VIAL 4ML INH SCH ×2 (00:14→08:32)
[2018-02-24] MEDS: IPRATROPIUM/ALBUTEROL 0.5-3(2.5)MG/3ML NEB HHN SCH ×6 (00:14→20:06)
[2018-02-24] MEDS: CEFAZOLIN 1000MG PREMIX 50 ML IV SCH ×3 (01:58→19:21)
[2018-02-24] MEDS: PHENYTOIN 100 MG/4 ML UDC NG SCH ×2 (05:33→14:45)
[2018-02-24 06:58] LABS: HEMATOCRIT. 30.6 % (42.0-52.0); HEMOGLOBIN. 10.1 g/dL (14.0-18.0); MEAN CORPUSCULAR HEMOGLOBIN 26.8 pg (28.0-32.0); MEAN CORPUSCULAR VOLUME 81.5 fL (80.0-94.0); MEAN PLATELET VOLUME 7.8 fl (7.4-10.4); PLATELET 453 x1000/uL (130-400); RED BLOOD CELL COUNT 3.76 mill/uL (4.7-6.1); RED CELL DISTRIBUTION WIDTH 22.7 % (11.6-14.6)
[2018-02-24 07:27] LABS: CHLORIDE 100 mEq/L (98-107)
[2018-02-24 07:35] LABS: PHOSPHORUS 2.8 mg/dL (2.5-4.9)
[2018-02-24 09:26] LABS: PLATELET ESTIMATE SLIGHTLY INCREASED
[2018-02-24] MEDS ORDERED: POTASSIUM CHLORIDE 20MEQ/PACKET PO SCH (10:15)
[2018-02-24] MEDS: POTASSIUM CHLORIDE 20MEQ/PACKET NG SCH (10:42)
[2018-02-24] MEDS: FUROSEMIDE 40MG/4ML VIAL IVP SCH (10:42)
[2018-02-24] MEDS: DOCUSATE SODIUM SUGAR FREE 100MG/10ML UDC NG SCH (10:43)
[2018-02-24] MEDS: FERROUS SULFATE 300MG/5ML UDC PO SCH ×3 (10:43→19:21)
[2018-02-24] MEDS: LEVETIRACETAM 500MG/5ML CUP GT SCH (10:43)
[2018-02-24] MEDS: RISPERIDONE 0.5MG TABLET PO SCH (11:02)
[2018-02-24] MEDS: PANTOPRAZOLE SODIUM 40 MG/VIAL IV SCH (11:02)
[2018-02-24] MEDS: AMLODIPINE 5MG TABLET NG SCH (11:02)
[2018-02-24] MEDS: ONDANSETRON HCL 4MG/2ML VIAL IV PRN (19:52)
[2018-02-24] MEDS: DIPHENHYDRAMINE 50MG/ML VIAL IV PRN (19:52)
== END 2018-02-24 21:37 | DRG 4 ==
LOC: ER 12:15 → EDBEDREQ 12:48 → EDBEDREQSVC 12:49 → EDBEDREQ 12:49 → CVICU 13:37 → EDBEDREQ 13:41 → EDBEDREQTM 13:41 → ENRESERV 13:58 → 5EST 02-18 18:30
PROVIDERS: ADMIT Hospitalist; ATTEND Internal Medicine
PROC: 5A1955Z Respiratory Ventilation, Greater than 96 Consecutive Hours (ICD-10-PCS; principal; 2018-02-04)
PROC: 0BH17EZ Insertion of Endotracheal Airway into Trachea, Via Natural or Artificial Opening (ICD-10-PCS; 2018-02-04)
PROC: 02HV33Z Insertion of Infusion Device into Superior Vena Cava, Percutaneous Approach (ICD-10-PCS; 2018-02-04)
PROC: B548ZZA Ultrasonography of Superior Vena Cava, Guidance (ICD-10-PCS; 2018-02-04)
PROC: 4A00X4Z Measurement of Central Nervous Electrical Activity, External Approach (ICD-10-PCS; 2018-02-08)
PROC: 0BH17EZ Insertion of Endotracheal Airway into Trachea, Via Natural or Artificial Opening (ICD-10-PCS; 2018-02-08)
PROC: 0B110F4 Bypass Trachea to Cutaneous with Tracheostomy Device, Open Approach (ICD-10-PCS; 2018-02-17)
PROC: 0DH63UZ Insertion of Feeding Device into Stomach, Percutaneous Approach (ICD-10-PCS; 2018-02-17)
DX: A41.9 Sepsis, unspecified organism (principal); G92 Toxic encephalopathy; J69.0 Pneumonitis due to inhalation of food and vomit; J96.01 Acute respiratory failure with hypoxia; N17.0 Acute kidney failure with tubular necrosis; R65.21 Severe sepsis with septic shock; E43 Unspecified severe protein-calorie malnutrition; E87.1 Hypo-osmolality and hyponatremia; E87.0 Hyperosmolality and hypernatremia; Z99.11 Dependence on respirator [ventilator] status; E87.4 Mixed disorder of acid-base balance; E78.5 Hyperlipidemia, unspecified; E87.6 Hypokalemia; F03.90 Unspecified dementia, unspecified severity, without behavioral disturbance, psychotic disturbance, mood disturbance, and anxiety; F20.9 Schizophrenia, unspecified; G40.901 Epilepsy, unspecified, not intractable, with status epilepticus; K44.9 Diaphragmatic hernia without obstruction or gangrene; K29.70 Gastritis, unspecified, without bleeding; J38.4 Edema of larynx; R13.10 Dysphagia, unspecified; D50.9 Iron deficiency anemia, unspecified; F32.9 Major depressive disorder, single episode, unspecified; D64.9 Anemia, unspecified; I11.9 Hypertensive heart disease without heart failure; I95.9 Hypotension, unspecified; I35.2 Nonrheumatic aortic (valve) stenosis with insufficiency; F41.9 Anxiety disorder, unspecified; I49.3 Ventricular premature depolarization; E87.5 Hyperkalemia; Z68.23 Body mass index [BMI] 23.0-23.9, adult; Z99.3 Dependence on wheelchair; Z87.01 Personal history of pneumonia (recurrent); Z86.73 Personal history of transient ischemic attack (TIA), and cerebral infarction without residual deficits; Z79.899 Other long term (current) drug therapy; Z78.1 Physical restraint status; Z79.82 Long term (current) use of aspirin
CPT/HCPCS: 31500; 36415; 36569; 36600; 51702; 70450; 71045; 74018; 76937; 80048; 80053; 80185; 80202; 81003; 82270; 82375; 82542; 82550; 82728; 82805; 82962; 83540; 83550; 83605; 83690; 83735; 83880; 84100; 84132; 84478; 84484; 85014; 85018; 85025; 85610; 85730; 86038; 86160; 87040; 87070; 87077; 87086; 87106; 87186; 93005; 93306; 93970; 94002; 94003; 94640; 96361; 96365; 96368; 96375; 99291; A4216; A6261; C1725; C1893; C9113; J0330; J0690; J1165; J1200; J1720; J1940; J1953; J2060; J2250; J2270; J2405; J2543; J2704; J2765; J3010; J3370; J3475; J3480; J3490; J7030; J7040; J7042; J7050; J7060; J7608; J7620; A4315

== ENCOUNTER 2018-04-01 07:41 | Inpatient (IN) | payer MEDICARE, MEDICAID ==
[2018-04-01] VITALS (36 sets, daily range): BP systolic 122–170; BP diastolic 53–132
[~2018-04-01] VITALS: Ht 160 cm; Wt 85.7 kg
[2018-04-01] MEDS ORDERED: LORAZEPAM 2MG/ML CPJ IV PRN (08:30)
[2018-04-01] MEDS: DEXT 5%/0.45% NACL 1000ML 1,000 ML IV SCH (08:41)
[2018-04-01] MEDS ORDERED: MORPHINE SULFATE 4 MG/ML CPJ (NOT FOR IM USE) IV PRN (08:45)
[2018-04-01] MEDS ORDERED: ACETAMINOPHEN 325MG TABLET PO PRN (08:45)
[2018-04-01] MEDS ORDERED: ONDANSETRON HCL 4MG/2ML INJ IV PRN (08:45)
[2018-04-01] MEDS ORDERED: CLONIDINE 0.1MG TABLET PO PRN (08:45)
[2018-04-01 08:55] LABS: HEMATOCRIT. 26.5 % (42.0-52.0); HEMOGLOBIN. 8.8 g/dL (14.0-18.0); MEAN CORPUSCULAR HEMOGLOBIN 28.5 pg (28.0-32.0); MEAN CORPUSCULAR VOLUME 86.3 fL (80.0-94.0); PLATELET 414 x1000/uL (130-400); RED BLOOD CELL COUNT 3.07 mill/uL (4.7-6.1); RED CELL DISTRIBUTION WIDTH 24.4 % (11.6-14.6)
[2018-04-01 09:01] LABS: CHLORIDE 100 mEq/L (98-107)
[2018-04-01 09:05] LABS: INR 1.2; PROTHROMBIN TIME 11.7 sec (9.1-11.1)
[2018-04-01 09:53] LABS: BG BASE EXCESS -0.7 mmol/L (-2.0-2.0); BG CARBOXYHEMOGLOBIN 0.3 % (0.5-1.5); BG DEOXYHEMOGLOBIN 1.5 % (0.0-5.0); BG FRACTION INSPIRED OXYGEN 60; BG HCO3 ACT 26.1 mmol/L (22.0-26.0); BG METHEMOGLOBIN 0.2 % (0.0-1.5); BG OXYGEN SATURATION 98.5 % (92.0-98.5); BG PCO2 54.6 mmHg (35.0-45.0); BG PH 7.298 (7.350-7.450); BG PO2 145.2 mmHg (75.0-100.0); BG SAMPLE SITE RIGHT BRACHIAL; BG TOTAL HEMOGLOBIN 9.7 g/dL (12.0-18.0); BG VENT MODE MASK - AEROSOL
[2018-04-01 09:56] LABS: PLATELET ESTIMATE INCREASED
[2018-04-01] MEDS ORDERED: LIDOCAINE HCL 1% 10 MG/ML 10ML VIAL ONE (10:24)
[2018-04-01] MEDS ORDERED: IOHEXOL-300 100 ML BOTTLE ONE (10:25)
[2018-04-01] MEDS ORDERED: SUCCINYLCHOLINE CHLORIDE 200MG/10ML VIAL IV ONE (10:26)
[2018-04-01] MEDS ORDERED: PROPOFOL 200MG/20ML VIAL IV ONE (10:26)
[2018-04-01] MEDS ORDERED: MIDAZOLAM HCL 2 MG/2 ML VIAL ONE (10:26)
[2018-04-01] MEDS ORDERED: CEFAZOLIN SODIUM 1000MG/VIAL ONE (10:26)
[2018-04-01] MEDS ORDERED: ROCURONIUM BROMIDE 10MG/ML VIAL 5ML IV ONE ×2 (10:26→12:10)
[2018-04-01] MEDS ORDERED: EPHEDRINE SULFATE 50MG/ML VIAL ONE (10:29)
[2018-04-01] MEDS: LEVOFLOXACIN 500MG PREMIX 100 ML IV SCH (11:00)
[2018-04-01] MEDS ORDERED: GENTAMICIN/NS IRRIGATION 500 ML IR ONE (11:40)
[2018-04-01] MEDS ORDERED: DEXTROSE 50% WATER 50ML SYRINGE IV PRN (11:45)
[2018-04-01] MEDS ORDERED: IPRATROPIUM/ALBUTEROL 0.5-3(2.5)MG/3ML NEB INH SCH (12:00)
[2018-04-01] MEDS ORDERED: GENTAMICIN SULF 40MG/ML 2ML VIAL ONE (12:32)
[2018-04-01] MEDS ORDERED: HYDROCODONE/ACETAMINOPHEN 5/325MG TABLET PO PRN (13:00)
[2018-04-01 14:14] LABS: BG BASE EXCESS -1.5 mmol/L (-2.0-2.0); BG CARBOXYHEMOGLOBIN 0.4 % (0.5-1.5); BG FRACTION INSPIRED OXYGEN 60; BG HCO3 ACT 27.5 mmol/L (22.0-26.0); BG METHEMOGLOBIN 0.2 % (0.0-1.5); BG OXYHEMOGLOBIN 96.4 % (94.0-97.0); BG PCO2 72.1 mmHg (35.0-45.0); BG PH 7.199 (7.350-7.450); BG PO2 113.2 mmHg (75.0-100.0); BG SAMPLE SITE RIGHT BRACHIAL; BG TIDAL VOLUME(mL) 500 mL; BG TOTAL HEMOGLOBIN 10.2 g/dL (12.0-18.0); BG VENT MODE VENT - A/C; BG VENT RATE 14 set
[2018-04-01] MEDS: LORAZEPAM 2MG/ML CPJ IV PRN ×2 (14:45→19:49)
[2018-04-01] MEDS: IPRATROPIUM/ALBUTEROL 0.5-3(2.5)MG/3ML NEB HHN SCH ×2 (15:29→20:23)
[2018-04-01] MEDS: METRONIDAZOLE 500MG TABLET PO SCH ×2 (15:55→22:58)
[2018-04-01 16:00] LABS: BG BASE EXCESS 0.1 mmol/L (-2.0-2.0); BG CARBOXYHEMOGLOBIN 0.2 % (0.5-1.5); BG DEOXYHEMOGLOBIN 2.1 % (0.0-5.0); BG FRACTION INSPIRED OXYGEN 50; BG HCO3 ACT 27.8 mmol/L (22.0-26.0); BG METHEMOGLOBIN 0.2 % (0.0-1.5); BG OXYGEN SATURATION 97.9 % (92.0-98.5); BG OXYHEMOGLOBIN 97.5 % (94.0-97.0); BG PCO2 62.7 mmHg (35.0-45.0); BG PH 7.265 (7.350-7.450); BG SAMPLE SITE RIGHT BRACHIAL; BG TIDAL VOLUME(mL) 450 mL; BG TOTAL HEMOGLOBIN 9.6 g/dL (12.0-18.0); BG VENT MODE VENT - A/C; BG VENT RATE 16 set
[2018-04-01] MEDS ORDERED: VANCOMYCIN 1500MG in DEXTROSE 5% WATER 250ML IV SCH (16:00)
[2018-04-01 17:08] LABS: CLARITY URINE CLEAR (CLEAR); COLOR URINE YELLOW (YELLOW); KETONES URINE NEGATIVE (NEGATIVE); LEUKOCYTE ESTERASE URINE 3+ (NEGATIVE); NITRITE URINE NEGATIVE (NEGATIVE); OCCULT BLOOD URINE TRACE (NEGATIVE); PH URINE 6.5 (4.5-8.0); PROTEIN URINE NEGATIVE (NEGATIVE); SPECIFIC GRAVITY URINE 1.005 (1.005-1.030); UROBILINOGEN URINE 0.2 E.U./dL (0.2-1.0)
[2018-04-01] MEDS: BLOOD SUGAR DIAGNOSTIC STRIP TEST SCH ×2 (17:14→23:20)
[2018-04-01] MEDS: INSULIN LISPRO 100 UNITS/ML SUBCUT SCH ×2 (17:14→23:21)
[2018-04-01] MEDS: CEFEPIME 1,000 MG in DEXTROSE 5% WATER 50 ML IV SCH (17:30)
[2018-04-02] VITALS (60 sets, daily range): BP systolic 100–173; BP diastolic 54–112
[2018-04-02] MEDS: LORAZEPAM 2MG/ML CPJ IV PRN ×4 (00:45→17:51)
[2018-04-02] MEDS: DEXT 5%/0.45% NACL 1000ML 1,000 ML IV SCH ×2 (01:21→05:05)
[2018-04-02] MEDS: IPRATROPIUM/ALBUTEROL 0.5-3(2.5)MG/3ML NEB HHN SCH ×5 (04:21→19:42)
[2018-04-02] MEDS: VANCOMYCIN 750 MG PREMIX 150 ML IV SCH ×2 (04:32→16:21)
[2018-04-02] MEDS: CEFEPIME 1,000 MG in DEXTROSE 5% WATER 50 ML IV SCH ×2 (04:32→16:21)
[2018-04-02 05:32] LABS: BASOPHILS % 0.4 % (0.0-2.0); EOSINOPHILS % 5.8 % (0.0-5.0); HEMATOCRIT. 27.8 % (42.0-52.0); HEMOGLOBIN. 9.3 g/dL (14.0-18.0); LYMPHOCYTES % 13.2 % (20.0-50.0); MEAN CORPUSCULAR HEMOGLOBIN 29.3 pg (28.0-32.0); MEAN CORPUSCULAR VOLUME 87.7 fL (80.0-94.0); MEAN PLATELET VOLUME 7.8 fl (7.4-10.4); MONOCYTES % 13.9 % (2.0-8.0); NEUTROPHILS % 66.7 % (40.0-76.0); PLATELET 431 x1000/uL (130-400); RED BLOOD CELL COUNT 3.17 mill/uL (4.7-6.1); RED CELL DISTRIBUTION WIDTH 23.7 % (11.6-14.6)
[2018-04-02 05:41] LABS: CHLORIDE 103 mEq/L (98-107)
[2018-04-02] MEDS: INSULIN LISPRO 100 UNITS/ML SUBCUT SCH ×3 (06:00→17:19)
[2018-04-02] MEDS: BLOOD SUGAR DIAGNOSTIC STRIP TEST SCH ×3 (06:51→17:19)
[2018-04-02 08:06] LABS: BG BASE EXCESS 1.7 mmol/L (-2.0-2.0); BG CARBOXYHEMOGLOBIN 0.8 % (0.5-1.5); BG DEOXYHEMOGLOBIN 1.6 % (0.0-5.0); BG FRACTION INSPIRED OXYGEN 40; BG HCO3 ACT 28.2 mmol/L (22.0-26.0); BG METHEMOGLOBIN 0.3 % (0.0-1.5); BG OXYGEN SATURATION 98.4 % (92.0-98.5); BG OXYHEMOGLOBIN 97.3 % (94.0-97.0); BG PH 7.335 (7.350-7.450); BG PO2 129.3 mmHg (75.0-100.0); BG SAMPLE SITE RIGHT BRACHIAL; BG TIDAL VOLUME(mL) 450 mL; BG TOTAL HEMOGLOBIN 9.5 g/dL (12.0-18.0); BG VENT MODE VENT - A/C; BG VENT RATE 16 set
[2018-04-02] MEDS: METRONIDAZOLE 500MG TABLET PO SCH ×2 (08:43→23:23)
[2018-04-02] MEDS ORDERED: METOCLOPRAMIDE HCL 10MG/2ML VIAL IV PRN (10:45)
[2018-04-02] MEDS: DOCUSATE SODIUM SUGAR FREE 100MG/10ML UDC NG SCH (12:22)
[2018-04-02] MEDS: LEVETIRACETAM 500MG/5ML CUP NG SCH ×2 (12:22→23:22)
[2018-04-02] MEDS: FERROUS SULFATE 300MG/5ML UDC NG SCH ×2 (12:22→17:50)
[2018-04-02] MEDS: RISPERIDONE 0.5MG TABLET NG SCH ×2 (12:22→23:24)
[2018-04-02] MEDS: PANTOPRAZOLE SODIUM 40 MG/VIAL IV SCH (12:22)
[2018-04-02] MEDS: LEVOFLOXACIN 500MG PREMIX 100 ML IV SCH (12:23)
[2018-04-02] MEDS: PHENYTOIN 100 MG/4 ML UDC NG SCH ×2 (13:39→23:24)
[2018-04-02] MEDS: AMLODIPINE 5MG TABLET PO SCH ×2 (13:40→23:23)
[2018-04-02] MEDS: LACTOBACILLUS GG CAPSULE NG SCH (17:50)
[2018-04-03] VITALS (12 sets, daily range): BP systolic 97–178; BP diastolic 47–117
[2018-04-03] MEDS: IPRATROPIUM/ALBUTEROL 0.5-3(2.5)MG/3ML NEB HHN SCH ×6 (00:02→20:30)
[2018-04-03] MEDS: CEFEPIME 1,000 MG in DEXTROSE 5% WATER 50 ML IV SCH ×2 (04:33→17:32)
[2018-04-03] MEDS: VANCOMYCIN 750 MG PREMIX 150 ML IV SCH (05:42)
[2018-04-03 05:44] LABS: BASOPHILS % 0.4 % (0.0-2.0); EOSINOPHILS % 3.1 % (0.0-5.0); HEMATOCRIT. 25.9 % (42.0-52.0); HEMOGLOBIN. 8.8 g/dL (14.0-18.0); LYMPHOCYTES % 14.2 % (20.0-50.0); MEAN CORPUSCULAR VOLUME 85.9 fL (80.0-94.0); MEAN PLATELET VOLUME 7.5 fl (7.4-10.4); MONOCYTES % 12.6 % (2.0-8.0); NEUTROPHILS % 69.7 % (40.0-76.0); PLATELET 454 x1000/uL (130-400); RED BLOOD CELL COUNT 3.02 mill/uL (4.7-6.1); RED CELL DISTRIBUTION WIDTH 24.4 % (11.6-14.6)
[2018-04-03 05:54] LABS: CHLORIDE 102 mEq/L (98-107)
[2018-04-03] MEDS: INSULIN LISPRO 100 UNITS/ML SUBCUT SCH ×4 (06:00→17:27)
[2018-04-03 06:06] LABS: PHOSPHORUS 1.3 mg/dL (2.5-4.9)
[2018-04-03] MEDS: PHENYTOIN 100 MG/4 ML UDC NG SCH ×3 (06:09→21:53)
[2018-04-03] MEDS: LORAZEPAM 2MG/ML CPJ IV PRN (06:09)
[2018-04-03] MEDS: LACTOBACILLUS GG CAPSULE NG SCH ×2 (06:09→17:32)
[2018-04-03] MEDS: BLOOD SUGAR DIAGNOSTIC STRIP TEST SCH ×5 (06:10→23:58)
[2018-04-03 06:50] LABS: BG BASE EXCESS 5.6 mmol/L (-2.0-2.0); BG CARBOXYHEMOGLOBIN 0.7 % (0.5-1.5); BG DEOXYHEMOGLOBIN 5.9 % (0.0-5.0); BG HCO3 ACT 29.8 mmol/L (22.0-26.0); BG METHEMOGLOBIN 0.3 % (0.0-1.5); BG OXYHEMOGLOBIN 93.1 % (94.0-97.0); BG PCO2 42.1 mmHg (35.0-45.0); BG PH 7.468 (7.350-7.450); BG PO2 68.1 mmHg (75.0-100.0); BG SAMPLE SITE RIGHT RADIAL; BG TIDAL VOLUME(mL) 450 mL; BG TOTAL HEMOGLOBIN 8.9 g/dL (12.0-18.0); BG VENT MODE VENT - A/C; BG VENT RATE 16 set
[2018-04-03] MEDS: METRONIDAZOLE 500MG TABLET PO SCH ×2 (08:12→21:50)
[2018-04-03] MEDS: FERROUS SULFATE 300MG/5ML UDC NG SCH ×3 (08:12→17:32)
[2018-04-03] MEDS: PANTOPRAZOLE SODIUM 40 MG/VIAL IV SCH (08:12)
[2018-04-03] MEDS: DOCUSATE SODIUM SUGAR FREE 100MG/10ML UDC NG SCH (08:12)
[2018-04-03] MEDS: LEVETIRACETAM 500MG/5ML CUP NG SCH ×2 (08:12→21:53)
[2018-04-03] MEDS: AMLODIPINE 5MG TABLET PO SCH ×2 (08:13→21:50)
[2018-04-03] MEDS: RISPERIDONE 0.5MG TABLET NG SCH ×2 (10:53→23:58)
[2018-04-03] MEDS: LEVOFLOXACIN 500MG PREMIX 100 ML IV SCH (10:53)
[2018-04-04] VITALS (10 sets, daily range): BP systolic 133–157; BP diastolic 71–107
[2018-04-04] MEDS: IPRATROPIUM/ALBUTEROL 0.5-3(2.5)MG/3ML NEB HHN SCH ×4 (04:50→16:04)
[2018-04-04] MEDS ORDERED: VANCOMYCIN 750 MG PREMIX 150 ML IV SCH (05:00)
[2018-04-04] MEDS: CEFEPIME 1,000 MG in DEXTROSE 5% WATER 50 ML IV SCH (05:49)
[2018-04-04] MEDS: BLOOD SUGAR DIAGNOSTIC STRIP TEST SCH ×2 (05:55→12:30)
[2018-04-04] MEDS: INSULIN LISPRO 100 UNITS/ML SUBCUT SCH ×3 (05:56→12:00)
[2018-04-04 06:08] LABS: BASOPHILS % 0.5 % (0.0-2.0); EOSINOPHILS % 7.8 % (0.0-5.0); HEMATOCRIT. 27.3 % (42.0-52.0); HEMOGLOBIN. 9.1 g/dL (14.0-18.0); LYMPHOCYTES % 15.5 % (20.0-50.0); MEAN CORPUSCULAR HEMOGLOBIN 28.8 pg (28.0-32.0); MEAN CORPUSCULAR VOLUME 86.5 fL (80.0-94.0); MEAN PLATELET VOLUME 7.3 fl (7.4-10.4); MONOCYTES % 11.8 % (2.0-8.0); NEUTROPHILS % 64.4 % (40.0-76.0); PLATELET 445 x1000/uL (130-400); RED BLOOD CELL COUNT 3.15 mill/uL (4.7-6.1); RED CELL DISTRIBUTION WIDTH 24.7 % (11.6-14.6)
[2018-04-04 06:45] LABS: CHLORIDE 101 mEq/L (98-107)
[2018-04-04] MEDS: PHENYTOIN 100 MG/4 ML UDC NG SCH ×2 (08:01→13:20)
[2018-04-04] MEDS: LACTOBACILLUS GG CAPSULE NG SCH (08:02)
[2018-04-04 08:26] LABS: BG BASE EXCESS 6.3 mmol/L (-2.0-2.0); BG CARBOXYHEMOGLOBIN 0.8 % (0.5-1.5); BG FRACTION INSPIRED OXYGEN 35; BG HCO3 ACT 30.6 mmol/L (22.0-26.0); BG METHEMOGLOBIN 0.3 % (0.0-1.5); BG OXYHEMOGLOBIN 95.9 % (94.0-97.0); BG PCO2 42.9 mmHg (35.0-45.0); BG PH 7.471 (7.350-7.450); BG PO2 92.9 mmHg (75.0-100.0); BG SAMPLE SITE RIGHT RADIAL; BG TIDAL VOLUME(mL) 450 mL; BG TOTAL HEMOGLOBIN 9.7 g/dL (12.0-18.0); BG VENT MODE VENT - A/C; BG VENT RATE 16 set
[2018-04-04] MEDS: FERROUS SULFATE 300MG/5ML UDC NG SCH ×2 (08:41→13:20)
[2018-04-04] MEDS ORDERED: ENOXAPARIN 40MG/0.4ML SYR SUBCUT SCH (09:00)
[2018-04-04 09:24] LABS: PLATELET ESTIMATE INCREASED
[2018-04-04] MEDS ORDERED: SODIUM PHOS,M-BASIC-D-BASIC 15 MM in DEXT 5% WATER 245 ML IV NR (09:30)
[2018-04-04] MEDS ORDERED: MAGNESIUM 2 G PREMIX 50 ML IV NR (09:30)
[2018-04-04] MEDS: LEVETIRACETAM 500MG/5ML CUP NG SCH (10:08)
[2018-04-04] MEDS: DOCUSATE SODIUM SUGAR FREE 100MG/10ML UDC NG SCH (10:08)
[2018-04-04] MEDS: METRONIDAZOLE 500MG TABLET PO SCH (10:08)
[2018-04-04] MEDS: PANTOPRAZOLE SODIUM 40 MG/VIAL IV SCH (10:08)
[2018-04-04] MEDS: AMLODIPINE 5MG TABLET PO SCH (10:09)
[2018-04-04] MEDS: RISPERIDONE 0.5MG TABLET NG SCH (10:09)
[2018-04-04] MEDS: LEVOFLOXACIN 500MG PREMIX 100 ML IV SCH (10:15)
[2018-04-04] MEDS: LORAZEPAM 2MG/ML CPJ IV PRN ×3 (12:24→16:44)
== END 2018-04-04 16:55 | DRG 242 ==
LOC: CCL 07:41 → 3WST 07:42 → CVICU 11:41 → 5EST 04-02 22:01
PROVIDERS: ADMIT Internal Medicine; ATTEND Internal Medicine
PROC: 02H63JZ Insertion of Pacemaker Lead into Right Atrium, Percutaneous Approach (ICD-10-PCS; 2018-04-01)
PROC: 02HK3JZ Insertion of Pacemaker Lead into Right Ventricle, Percutaneous Approach (ICD-10-PCS; 2018-04-01)
PROC: 5A1945Z Respiratory Ventilation, 24-96 Consecutive Hours (ICD-10-PCS; 2018-04-01)
PROC: 0JH606Z Insertion of Pacemaker, Dual Chamber into Chest Subcutaneous Tissue and Fascia, Open Approach (ICD-10-PCS; principal; 2018-04-01 09:30)
DX: I44.2 Atrioventricular block, complete (principal); J96.20 Acute and chronic respiratory failure, unspecified whether with hypoxia or hypercapnia; J18.9 Pneumonia, unspecified organism; Z99.11 Dependence on respirator [ventilator] status; J44.0 Chronic obstructive pulmonary disease with (acute) lower respiratory infection; E87.2 Acidosis; E11.9 Type 2 diabetes mellitus without complications; E78.5 Hyperlipidemia, unspecified; D64.9 Anemia, unspecified; E83.39 Other disorders of phosphorus metabolism; E83.42 Hypomagnesemia; E66.9 Obesity, unspecified; F32.9 Major depressive disorder, single episode, unspecified; F03.90 Unspecified dementia, unspecified severity, without behavioral disturbance, psychotic disturbance, mood disturbance, and anxiety; G40.909 Epilepsy, unspecified, not intractable, without status epilepticus; I10 Essential (primary) hypertension; R13.10 Dysphagia, unspecified; Z78.1 Physical restraint status; Z86.73 Personal history of transient ischemic attack (TIA), and cerebral infarction without residual deficits; Z93.0 Tracheostomy status; Z93.1 Gastrostomy status; Z68.33 Body mass index [BMI] 33.0-33.9, adult
CPT/HCPCS: 33208; 36415; 36600; 71045; 75820; 80048; 80202; 81003; 82375; 82805; 82962; 83735; 84100; 84484; 85025; 85610; 87040; 87070; 87077; 87086; 87186; 93005; 93970; 94002; 94003; 94640; C1785; C1892; C1893; C1898; C9113; J0330; J0690; J0692; J1580; J1650; J1956; J2060; J2250; J2270; J2704; J3370; J3475; J3490; J7040; J7050; J7060; J7620; Q9967; A4315